=== PATIENT | male | born 1970 | race Caucasian/White ===

== ENCOUNTER 2024-02-03 11:49 | Inpatient (IN) | payer MEDICARE, MEDICAID, SELFPAY ==
[2024-02-03] VITALS (18 sets, daily range): BP systolic 129–178; BP diastolic 66–96; PULSE 80–107; RESP 15–18; TEMP 36.6–37.9; O2SAT 94–100; BMI 45.9
--- NOTE | 2024-02-03 12:02 | XR_ITS ---
WS: [id number] Examination: XR foot RT min 3V* [id number] Reason for Exam: foot infection Date: 02/03/2024 Comparison: None. Findings: There is marked soft tissue swelling of the ankle and foot Soft tissue air is identified both dorsally and along the plantar aspect of the foot There is destruction and osteomyelitis involving the right fourth proximal phalanx. Destructive hidalgo es/postoperative changes of the right first distal phalanx are identified. XR/XR foot RT min 3V* [id number] Impression: Marked soft tissue swelling is identified with soft tissue gas consistent with infection by a gas-forming organism. There is osteomyelitis involving the right fourth proximal phalanx. I discussed these findings with Dr. Fulton in the emergency room at 12:37 p.m. . He had already obtained a surgical consultation.
--- NOTE | 2024-02-03 12:02 | XR_ITS ---
WS: [id number] Examination: XR foot LT min 3V* [id number] Reason for Exam: foot infection Date: 02/03/2024 Comparison: None. Findings: There is soft tissue swelling of the foot particularly the great toe. A soft tissue wound/ulcer and wound of the great toe is suspected. There is deformity of the left first distal phalanx. On the lateral image apparent destructive change s are noted. I have no previous studies available for comparison. Findings are suggestive of osteomye litis. Radiopaque debris is identified along the plantar aspect of the great toe. There is no fracture or dislocation. XR/XR foot LT min 3V* [id number] Impression: There is soft tissue swelling. Findings suggest bony destruction/osteomyelitis of the distal phalanx of the left first toe. If old films are available comparison this would be of benefit..
--- NOTE | 2024-02-03 12:11 | ED_ITS ---
HPI - Wound/Laceration 2 General: Chief Complaint: Wound/Laceration Stated Complaint: rt foot infection, sepsis Time Seen by Provider: 02/03/24 11:56 History of Present Illness: 53-year-old man with a history of diabet es who currently takes no medications and sees no doctors who presents emergency room with worsening foot pain. He has what appears to be old wounds on his feet that are full of dirt and hair. He also has a lesion on his right foot in the arch area that is blistering and has surrounding erythema. This been going on for some time. He cannot really tell me why today was different than any other day when came in. He does have a bit of a fever on presentation. No altered mental status. No focal motor deficits. He does have an odd affect. No chest pain. No shortness of breath. No abdominal pain. No nausea or vomiting. Related Data Allergies Allergy/AdvReac Type Severity Reaction Status Date / Time No Known Allergies Allergy Verified 02/03/24 12:00 Review of Systems 2 Narrative: Constitutional symptoms: Negative except as documented in HPI. Skin symptoms: Negative except as documented in HPI. Eye symptoms: Negative except as documented in HPI. ENMT symptoms: Negative except as documented in HPI. Respiratory symptoms: Negative except as documented in HPI. Cardiovascular symptoms: Negative except as documented in HPI. Gastrointestinal symptoms: Negative except as documented in HPI. Genitourinary symptoms: Negative except as documented in HPI. Musculoskeletal symptoms: Negative except as documented in HPI. Neurologic symptoms: Negative except as documented in HPI. Psychiatric symptoms: Negative except as documented in HPI. Endocrine symptoms: Negative except as documented in HPI. Physical Exam 2 Narrative: EXAM NARRATIVE: General: Alert, no acute distress. Skin: Warm, dry. Head: Normocephalic, atraumatic. Neck: Supple, trachea midline. Eye: Extraocular movements are intact. Ears, nose, mouth and throat: mucosa moist. Cardiovascular: Regular, Normal peripheral perfusion. Respiratory: Lungs are clear to auscultation, respirations are non-labored, breath sounds are equal, Symmetrical chest wall expansion. Gastrointestinal: Soft, Nontender, Non distended Musculoskeletal: Normal ROM, no deformity. Neurological: Alert and oriented, No focal neurological deficit observed. Psychiatric: Cooperative, appropriate mood & affect. Course 2 Vital Signs: Vital signs: Vital Signs Temperature 98.1 F 02/03/24 14:28 Pulse Rate 104 H 02/03/24 14:28 Respiratory Rate 18 02/03/24 14:28 Blood Pressure 174/88 02/03/24 14:28 Pulse Oximetry 100 02/03/24 14:28 Oxygen Delivery Me thod Room Air 02/03/24 14:28 MDM - Wound/Laceration Medical Decision Making Medical decision making: Differential diagnosis including but not limited to and based on the above HPI, review of systems and physical exam: Patient has obvious foot infection. Concern for osteomyelitis and sepsis. Lab work and cultures etc. were ordered. Orders placed to evaluate differential diagnosis based on the above differential, HPI and physical exam Lab Review: Laboratory results were reviewed and interpreted by myself the emergency room physician. Significant leukocytosis. White count is 20,000. Significant anemia. Hemoglobin 7.8. Type and screen and coags were ordered. BUN and creatinine are elevated at 39 and 2.1. I do not have any baseline. Some acidosis with a CO2 of 16. X-ray of the right foot: Marked soft tissue swelling and soft tissue gas consistent with infection by gas-forming organism. There is osteomyelitis involving the right fourth proximal phalanx. X-ray of the left foot: There is soft tissue swelling. Findings suggest bony destruction/osteomyelitis of the distal phalanx of the left first toe. I reviewed the patient's medical record. Reexamination: Patient has remained stable. No worsening of the infection site. No altered mental status. No focal motor deficits. Consultation: Initially I consulted Dr. Bryan. He is evaluated the patient and looked at films. He feels the right foot is unsalvageable and recommends general surgery consultation for right BKA. He will continue to follow as far as the left foot is concerned. Consultation: I consulted Dr. French with general surgery. He is taking the patient to the OR for a right BKA as it appears he has gangrenous foot infection with osteomyelitis and copious air in his foot. Consultation: I spoke with Dr. Schwartz with the hospitalist service. He agrees to admission of the patient. Assessment and plan: Gangrenous foot infection Diabetic foot ulcers Medical noncompliance Poorly controlled diabetes Fever Possible sepsis - unknown heart status and patient does have high blood pressure and mild tachycardia so possible sepsis was given broad-spectrum antibiotics and a single liter of fluid. He can be reevaluated for further fluid administration. I do not know his heart status. -Broad-spectrum antibiotics were administered. Zyvox and meropenem -Sepsis quality measures. -Lactic acid with a reflex was ordered. -Blood cultures were ordered. -I discussed the patient with the hospitalist on-call who is admitting the patient. - Discussed findings and plan with patient. Answered any questions. - All laboratory values were reviewed and interpreted personally by myself, the ER physician - All imaging was reviewed and interpreted personally by myself, the ER physician. - Evaluation and treatment of this problem were appropriate in the emergency setting Critical care -I spent a total of >35 minutes of critical care time managing the patient, independent of any other practitioner. -The time involved in the performance of separately reportable procedures was not counted towards critical care time. Lab Data 02/03/24 13:15 02/03/24 13:15 Radiology Impressions Foot X-Ray 02/03/24 12:02 Impression: Marked soft tissue swelling is identified with soft tissue gas consistent with infection by a gas-forming organism. There is osteomyelitis involving the right fourth proximal phalanx. I discussed these findings with Dr. Fulton in the emergency room at 12:37 p.m. 02/03/2024. He had already obtained a surgical consultation. Laboratory Results WBC 20.09 10^3/uL (3.29-11.43) H 02/03/24 13:15 RBC 3.12 10^6/uL (3.85-5.65) L 02/03/24 13:15 Hgb 7.80 g/dL (11.27-16.99) L 02/03/24 13:15 Hct 27.0 % (37-53) L 02/03/24 13:15 MCV 86.5 fl (82-101) 02/03/24 13:15 MCH 25.0 pg (27-33) L 02/03/24 13:15 MCHC 28.9 g/dL (30-55) L 02/03/24 13:15 RDW 15.2 % (12.1-15.1) H 02/03/24 13:15 Plt Count 519 10^3/cmm (157-399) H 02/03/24 13:15 MPV 9.8 fL (7.4-10.4) 02/03/24 13:15 Neut % (Auto) 86.2 % 02/03/24 13:15 Lymph % (Auto) 4.8 % 02/03/24 13:15 Sequoyah % (Auto) 7.6 % 02/03/24 13:15 Eos % (Auto) 0.1 % 02/03/24 13:15 Baso % (Auto) 0.3 % 02/03/24 13:15 Neut # (Auto) 17.29 10^3/uL (1.8-7.7) H 02/03/24 13:15 Lymph # (Auto) 1.0 10^3/uL (0.8-4.8) 02/03/24 13:15 Sequoyah # (Auto) 1.5 10^3/uL (0.2-0.9) H 02/03/24 13:15 Eos # (Auto) 0.0 10^3/uL (0.0-0.8) 02/03/24 13:15 Baso # (Auto) 0.1 10^3/uL (0.0-0.1) 02/03/24 13:15 Nucleated RBC % (auto) 0 % 02/03/24 13:15 Nucleated RBCs # 0.0 /100WBC 02/03/24 13:15 ESR 99 mm/hr (0-10) H 02/03/24 13:15 PT 16.50 SECONDS (12.1-14.9) H 02/03/24 13:15 INR 1.29 (0.8-1.2) H 02/03/24 13:15 APTT 31.1 SECONDS (23.9-36.7) 02/03/24 13:15 Sodium 130 mmol/L (136-145) L 02/03/24 13:15 Potassium 3.7 mmol/L (3.5-5.1) 02/03/24 13:15 Chloride 96 mmol/L (98-107) L 02/03/24 13:15 Carbon Dioxide 16 mmol/L (22-29) L 02/03/24 13:15 Anion Gap 21.7 (5-19) H 02/03/24 13:15 BUN 39 mg/dL (6-20) H 02/03/24 13:15 Creatinine 2.1 mg/dL (0.7-1.2) H 02/03/24 13:15 GFR Calculation 33.3 mL/min (90-130) L 02/03/24 13:15 Glucose 170 mg/dL (65-115) H 02/03/24 13:15 Calculated Osmolality 283 mOsm/kg (285-295) L 02/03/24 13:15 Lactic Acid 1.2 mmol/L (0.5-2.2) 02/03/24 13:15 Calcium 7.8 mg/dL (8.5-10.5) L 02/03/24 13:15 Phosphorus 3.2 mg/dL (2.5-4.5) 02/03/24 13:15 Total Bilirubin 0.2 mg/dL (0.15-1.2) 02/03/24 13:15 AST 13 U/L (0-40) 02/03/24 13:15 ALT 11 U/L (0-41) 02/03/24 13:15 Alkaline Phosphatase 273 U/L (40-130) H 02/03/24 13:15 C-Reactive Protein 374.3 mg/L (0.0-4.9) H 02/03/24 13:15 Total Protein 8.0 g/dL (6.6-8.7) 02/03/24 13:15 Albumin 1.9 g/dL (3.5-5.2) L 02/03/24 13:15 Globulin 6.1 g/dL (1.3-4.6) H 02/03/24 13:15 Blood Type A Positive 02/03/24 14:02 Rho(D) Type Rh positive 02/03/24 14:02 All radiology interpretation(s) finalized by discharge Discharge Plan Discharge Patient Disposition: Admitted As Inpatient Clinical Impression: Gangrene of right foot, Medical non-compliance, Renal failure, Anemia, Sepsis Condition: Stable Coding Level of Care Code ED Neurodiagnostic Technician for Radha Doran
[2024-02-03 13:23] LABS: Basophils # 0.1 10^3/uL (0.0-0.1); Basophils % 0.3 %; Eosinophils % 0.1 %; Lymphocytes % 4.8 %; Mean Corpuscular HGB Conc 28.9 g/dL (30-55); Mean Corpuscular Volume 86.5 fl (82-101); Mean Platelet Volume 9.8 fL (7.4-10.4); Monocytes # 1.5 10^3/uL (0.2-0.9); Monocytes % 7.6 %; Neutrophils # 17.29 10^3/uL (1.8-7.7); Neutrophils % 86.2 %; Nucleated Red Blood Cells % 0 %; Platelet Count 519 10^3/cmm (157-399); Red Blood Count 3.12 10^6/uL (3.85-5.65); Red Cell Distribution Width 15.2 % (12.1-15.1); White Blood Count 20.09 10^3/uL (3.29-11.43)
--- NOTE | 2024-02-03 13:33 | P.ANESASSM_ITS ---
Pre-Anesthetic Assessment Height/Weight: Height 5 ft 10 in Weight 320 lb Temp Pulse Resp BP Pulse Ox O2 Del Method 100.3 F H 107 H 16 169/82 99 Room Air 02/03/24 11:57 02/03/24 12:00 02/03/24 12:00 02/03/24 12:00 02/03/24 12:00 02/03/24 12:00 Operation Date: 02/03/24 15:00 Proposed Procedures p Jeannette WOODSONA (Below Knee Amputation)(Right) - Laureano French, DO Social No tobacco Occasional alcohol use Exam alert, oriented x 3, clear to auscultation bilaterally and regular rate & rhythm Airway Submandibular: within normal limits Cervical ROM: within normal limits Mallampati: Class IV Dentition: other (Poor dentition, small mouth opening) Anesthetic Plan Other: Patient presents septic with gangrenous foot No prior anesthetic history N.p.o. since Labs reviewed WBC 20.9 Hemoglobin 7.8 Platelet count 519 Very poor hygiene, large. Plan for GETA Medications/Allergies Allergies Allergy/AdvReac Type Severity Reaction Status Date / Time No Known Allergies Allergy Verified 02/03/24 12:00 Data Anesthesia 02/03/24 13:15 02/03/24 13:15 Short CBC 02/03/24 Range/Units 13:15 WBC 20.09 H (3.29-11.43) 10^3/uL Hgb 7.80 L (11.27-16.99) g/dL Hct 27.0 L (37-53) % MCV 86.5 (82-101) fl Plt Count 519 H (157-399) 10^3/cmm Neut % (Auto) 86.2 % Neut # (Auto) 17.29 H (1.8-7.7) 10^3/uL Cardiac Studies: 2 No Data to Display
--- NOTE | 2024-02-03 13:35 | P.CONIM_ITS ---
Providers/Reason For Consult 2 Consulting Physician/Specialty*: Dr. Laureano French, DO/General Surgery Reason for Consult*: Right foot gas gangrene History of Present Illness History of Present Illness Saul Alexandra is a 53 year old male who presented to the hospital due to a worsening infection in his right foot. He also has wounds on his left foot. Podiatry saw the patient and believed he needs a right below-knee amputation. An x-ray of the right foot shows subcutaneous gas. He denies any significant pain in his right foot but there is significant edema to the right lower extremity especially compared to the left. He denies any fever or chills Review of Systems 2 General: Reports: 10 or more systems reviewed and unremarkable except in HPI and below Medications/Allergies Allergies Allergy/AdvReac Type Severity Reaction Status Date / Time No Known Allergies Allergy Verified 02/03/24 12:00 Vitals/I&O/Wt Last Vital Signs Temp 100.3 F H 02/03/24 11:57 Pulse 107 H 02/03/24 12:00 Resp 16 02/03/24 12:00 BP 169/82 02/03/24 12:00 Pulse Ox 99 02/03/24 12:00 O2 Del Method Room Air 02/03/24 12:00 Weight last 48 hrs Weight 320 lb Physical Exam 2 Narrative: General : Patient is well developed , no acute distress, oriented x3 Head : Normal cephalic, a-traumatic. Ears : Pinnae and external canal are normal. Hearing is normal. Eyes : PERRLA, Sclera and injection are normal. No conjunctival discharge. Nose : Mucous membranes are without erythema. Throat : buccal mucosa is normal, gums are without significant recession or hypertrophy. Lungs : Equal chest rise bilaterally, no use of accessory muscles, trachea is midline. Cor : Rate and rhythm are normal. Abdomen : Soft, ND, NT, no g/r/m Extremities : Extensive infection to the right foot with crepitus. There is pitting edema of the right lower extremity up to the knee and no pitting edema of the left lower extremity. Back : non-tender to palpation, no CVA tenderness. Neuro : CN II - XII intact, Upper and lower extremities have equal and full strength Data 02/03/24 13:15 02/03/24 13:15 A&P Assessment and plan (1) Gangrene of right foot: Plan Antibiotics Admit to medicine Podiatry following left foot wounds To OR for right guillotine below-knee amputation The risks and benefits of the procedure, including but not limited to, bleeding, infection, scar, numbness, pain, phantom limb syndrome, the fact that a completion below-knee amputation will need to be done in the near future, were explained to the patient. He is understanding of the risks and wishes to proceed. He will require a completion right below-knee amputation once the infection and edema have left the right lower extremity. I suspect this will be approximately Tuesday next week Coding Level of Care Code 06728 Diagnoses Gangrene of right foot I96
[2024-02-03 13:38] LABS: Erythrocyte Sedimentation Rate 99 mm/hr (0-10)
[2024-02-03 13:39] LABS: Lactic Sepsis W/Reflex 1.2 mmol/L (0.5-2.2)
[2024-02-03 13:40] LABS: Alanine Aminotransferase 11 U/L (0-41); Albumin Level 1.9 g/dL (3.5-5.2); Alkaline Phosphatase 273 U/L (40-130); Anion Gap 21.7 (5-19); Aspartate Amino Transferase 13 U/L (0-40); Blood Urea Nitrogen 39 mg/dL (6-20); Calcium 7.8 mg/dL (8.5-10.5); Carbon Dioxide 16 mmol/L (22-29); Chloride 96 mmol/L (98-107); Creatinine Clr Calc Pharmacy 59.2836; Globulin 6.1 g/dL (1.3-4.6); Glomerular Filtration Rate 33.3 mL/min (90-130); Glucose 170 mg/dL (65-115); Osmolality Calculated 283 mOsm/kg (285-295); Phosphorus 3.2 mg/dL (2.5-4.5); Potassium 3.7 mmol/L (3.5-5.1); Sodium 130 mmol/L (136-145); Total Bilirubin 0.2 mg/dL (0.15-1.2)
[2024-02-03 13:46] LABS: INR 1.29 (0.8-1.2)
[2024-02-03 13:47] LABS: Partial Thromboplastin Time 31.1 SECONDS (23.9-36.7)
[2024-02-03 13:55] LABS: C Reactive Protein 374.3 mg/L (0.0-4.9)
--- NOTE | 2024-02-03 14:03 | P.CONIM_ITS ---
Providers/Reason For Consult 2 Consulting Physician/Specialty*: Liv De LunaPRanjeetMRanjeet/podiatry Reason for Consult*: Bilateral wounds, right foot gas gangrene History of Present Illness History of Present Illness Saul Alexandra is a 53 year old male with history of uncontrolled type 2 diabetes currently taking no medication. Who presented to the emergency department with complaint of worsening right foot pain. Patient is unkempt and states that he does not have a primary care provider and it has been a long time since he has seen any doctor. Patient states that he has not been able to eat or drink over the past 3 days. He has had increasing pain to the right lower extremity and endorses constitutional symptoms including fever. Review of Systems 2 General: Reports: 10 or more systems reviewed and unremarkable except in HPI and below Const: Denies: fever(s), chills, body aches or change in appetite Eyes: Denies: change in vision or blurry vision Card: Denies: chest pain, palpitations or irregular heart rhythm Resp: Denies: dyspnea GI: Denies: abdominal pain, nausea, vomiting or diarrhea Musc: Reports: joint stiffness Skin/Breast: Reports: non-healing lesions and lesions Neuro: Reports: numbness in extremities Medications/Allergies Allergies Allergy/AdvReac Type Severity Reaction Status Date / Time No Known Allergies Allergy Verified 02/03/24 12:00 Vitals/I&O/Wt Last Vital Signs Temp 100.3 F H 02/03/24 11:57 Pulse 103 H 02/03/24 13:53 Resp 16 02/03/24 13:53 BP 178/96 02/03/24 13:53 Pulse Ox 100 02/03/24 13:53 O2 Del Method Room Air 02/03/24 13:53 Weight last 48 hrs Weight 320 lb Physical Exam 2 Narrative: BELOW IS A FOCUSED LOWER EXTREMITY EXAM GENERAL: A&O x 3 VASCULAR: DP/PT pulses diminished DERMATOLOGICAL: Full-thickness ulceration to plantar hallux interphalangeal joint bilaterally. Visible dirt, pet hair and bilateral wounds. Right foot has significant erythema circumferentially around the forefoot midfoot with palpable crepitus circumferentially around the midfoot tracking up into the shalom pedis of the right foot. Large abscess formation to plantar medial arch with crepitus. MUSCULOSKELETAL: Deferred NEUROLOGICAL: Neurological sensation to the affected foot and ankle is present through L4-S1 dermatomes with no hyper/hypoesthesias, negative Tinel or Valleix's sign IMAGING: Three-view x-rays of bilateral feet taken in the emergency department were personally turbid by me. Right foot shows extensive soft tissue swelling with subcutaneous emphysema diffusely throughout the midfoot and forefoot. Gas appears to be tracking proximally to the level of the talonavicular joint. Ablation of distal phalanx of right hallux consistent with osteomyelitis as well as pathological fractures of fourth and fifth proximal phalanges surrounded by gas. Gas is tracking laterally to the level of the cuboid. Left foot shows increase soft tissue density. Erosive changes of distal phalanx of left hallux consistent with osteomyelitis with foreign bodies present. No subcutaneous emphysema noted on left foot x-rays. Data 02/03/24 13:15 02/03/24 13:15 A&P Assessment and plan (1) Gangrene of right foot: (2) Gas gangrene: (3) Left hallux osteomyelitis: Plan -Right foot gas gangrene, left foot hallux osteomyelitis -Labs and vitals reviewed -WBC 20.09 -ESR 99 -CRP 374 -HR 103 -RR 16 -Tmax 100.3 -Cultures blood cultures pending -Abx meropenem/linezolid -Diet: N.p.o. -Patient's condition warrants consideration for a more proximal level of amputation, specifically a below-knee or above-knee amputation. 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 Saul demonstrated comprehension of the situation and the need for further surgical intervention.? Patient expressed agreement to proceed with the higher level of amputation as recommended.? Patient understands the need for another surgical consultation with the appropriate expertise for further evaluation and has agreed to the referral process. -Patient is scheduled for guillotine amputation of right lower extremity with general surgery today 02/03/2024 -Patient will need further treatment for left hallux wound and underlying osteomyelitis. This will include debridement and possible amputation. I discussed this with the patient at bedside in the emergency department. I will continue to round on patient to provide recommendations and discuss the timing of this -Pain Mgmt: Per primary team -Weight bearing: Nonweightbearing -Dressings: Betadine wet-to-dry to left hallux wound change daily -Continue current Abx therapy until ID and Sensitivity results -Trend labs -Discharge plan: To be determined -Podiatry will continue to round on patient daily and provide recommendations Coding Level of Care Code Acute Code for Chg Fwd Diagnoses Gangrene of right foot I96 Gas gangrene A48.0 Left hallux osteomyelitis M86.9
[2024-02-03] MEDS: sodium chloride 0.9% 1,000 ML 999 ML IV (14:30)
[2024-02-03 15:17] LABS: Estmated Average Glucose 240
--- NOTE | 2024-02-03 15:55 | P.HP_ITS ---
Providers/Chief Complaint 2 Admitting Physician: Raphael Schwartz MD, hospitalist Chief Complaint: rt foot infection, sepsis History of Present Illness Saul Alexandra is a 53 year old diabetic male presenting to the nursing facility with concerns of an infected foot. He has not seen a doctor in quite some time. He has been having bilateral foot odor, drainage, sores, and now discomfort. I am now seeing him directly postoperative, and he is still under the effects of anesthesia. He can tell me he has had some sores for quite a while, but difficult in delineating much else. Medications/Allergies Allergies Allergy/AdvReac Type Severity Reaction Status Date / Time No Known Allergies Allergy Verified 02/03/24 12:00 PFSH Acute 2 PFSH: Medical History (Updated 02/03/24 @ 15:57 by Raphael Schwartz MD) Diabetes mellitus Surgical History (Updated 02/03/24 @ 16:55 by Raphael Schwartz MD) History of facial surgery Social History (Updated 02/03/24 @ 16:55 by Raphael Schwartz MD) Smoking and tobacco/nicotine status: never used tobacco/nicotine Alcohol intake: never Vitals/I&O/Wt Last Vital Signs Temp 98.1 F 02/03/24 14:28 Pulse 104 H 02/03/24 14:28 Resp 18 02/03/24 14:28 BP 174/88 02/03/24 14:28 Pulse Ox 100 02/03/24 14:28 O2 Del Method Room Air 02/03/24 14:28 Weight last 48 hrs Weight 145.15 kg Physical Exam 2 Narrative: General exam is a white male, recovering from anesthesia who appears sleepy. He is able to give limited history. HEENT: Atraumatic normocephalic. Scarring is noted around his left eye in the facial area. Neck is supple no lymphadenopathy thyromegaly Cardiovascular regular rate and rhythm without murmur Lungs clear Abdomen is soft nontender Right lower extremity with amputation. Left lower extremity with bandage/dressing Skin no rash Neuro no obvious focal deficits Data 02/03/24 13:15 02/03/24 13:15 Other Labs: ESR 99 LFTs normal with the exception of alk phos Calcium 7.8, albumin 1.9 Alk phos 273 CRP markedly elevated And A1c 10 Gas was noted on right foot x-ray consistent with gas gangrene. I reviewed this as well Left lower extremity with osteomyelitis left great toe. I reviewed this as well. It appears like a blood culture was ordered, but I do not think it was obtained prior to getting antibiotics. A&P Assessment and plan (1) Gangrene of right foot: Patient presents with gas gangrene of the right foot Pain control Surgical consult. He is currently receiving an amputation of his right lower extremity He will likely have a staged closure next week IV antibiotics consisting of vancomycin, Zosyn He likely qualified for sepsis diagnosis on arrival to the emergency department as it is documented in the emergency department physician note. He is certainly stabilized now. Unfortunately I do not believe blood cultures were obtained. Qualification of sepsis would have been elevated white count, source of infection, acute kidney injury, fever (2) Left hallux osteomyelitis: IV antibiotics consisting of vancomycin and Zosyn Podiatry consultation (3) Anemia: Patient with significant anemia Anemia panel, stool Hemoccult Protonix 40 mg daily CBC tomorrow (4) Acute kidney injury: Hydration Check urinalysis With low albumin we will go ahead and check a spot urine protein and creatinine. He may have nephrotic syndrome Renal ultrasound BMP daily Avoid anti-inflammatories (5) Hyponatremia: Likely secondary to renal failure Check TSH, cortisol Hydration, recheck tomorrow (6) Elevated blood pressure reading: He likely has hypertension, but blood pressure could be elevated secondary to pain Continue to monitor and start antihypertensives as warranted Plan Full code Heparin for DVT prophylaxis Attestations 2 Medical Necessity Statement*: Will need greater than 2 midnight stay for evaluation and treatment of gas gangrene requiring surgery, osteomyelitis requiring IV antibiotics Diagnoses Gangrene of right foot I96 Left hallux osteomyelitis M86.9 Anemia D64.9 Acute kidney injury N17.9 Hyponatremia E87.1 Elevated blood pressure reading R03.0 Time Spent (min) 67
[2024-02-03] MEDS: meropenem 500 mg SDV IVP (16:00)
--- NOTE | 2024-02-03 16:11 | PHA.VACGOAL ---
Vancomycin Goal - Goal Vancomycin Goal:: 15-20 mg/L Vancomycin Indication:: Other (GANGRENE) - Therapy Current therapy:: Pip/Tazo Day of therpy:: Day [1]of [] Actual body weight (kg): 320 lb [place] body weight: 73 kg Dosing weight (kg): 101.8 kg - Data Labs: WBC 20.09 10^3/uL (3.29-11.43) H 02/03/24 13:15 RBC 3.12 10^6/uL (3.85-5.65) L 02/03/24 13:15 Hgb 7.80 g/dL (11.27-16.99) L 02/03/24 13:15 Hct 27.0 % (37-53) L 02/03/24 13:15 MCV 86.5 fl (82-101) 02/03/24 13:15 MCH 25.0 pg (27-33) L 02/03/24 13:15 MCHC 28.9 g/dL (30-55) L 02/03/24 13:15 RDW 15.2 % (12.1-15.1) H 02/03/24 13:15 Sodium 130 mmol/L (136-145) L 02/03/24 13:15 Potassium 3.7 mmol/L (3.5-5.1) 02/03/24 13:15 Chloride 96 mmol/L (98-107) L 02/03/24 13:15 Carbon Dioxide 16 mmol/L (22-29) L 02/03/24 13:15 Anion Gap 21.7 (5-19) H 02/03/24 13:15 BUN 39 mg/dL (6-20) H 02/03/24 13:15 Creatinine 2.1 mg/dL (0.7-1.2) H 02/03/24 13:15 GFR Calculation 33.3 mL/min (90-130) L 02/03/24 13:15 Last dialysis session:: N/A Treatment plan:: new consult Regimen:: INITIAL BOLUS DOSE OF 2000 MG MAINTENANCE DOSE 1500 MG Q18H TO START TOMORROW Follow up:: WILL MONITOR RENAL FUNCTION AND CONTINUE TO FOLLOW UP DAILY
--- NOTE | 2024-02-03 16:21 | SUR.OPER ---
[address] WOOD AT THE UPPER THIGH WITH WEBRIL PLACED UNDERNEATH FOR PADDING. INFLATED TO 250MM/HG AT 1609, DEFLATED AT 1611. SKIN PINK AND DRY AFTER REMOVAL
--- NOTE | 2024-02-03 16:23 | PM.OP ---
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 Guillotine right below-knee amputation was indicated in order to help progression of the gangrene and allow for drainage of edema and infection. Plans are for completion right below-knee amputation in the near future. The risks and benefits of the procedure were explained and documented. Procedure: Patient was wheeled operative room placed on the OR table in supine position general endotracheal ovation was achieved as part of anesthesia. The right lower extremity was inspected prepped and draped in usual sterile fashion. A timeout was performed. All present were in agreement. A tourniquet around the right thigh was inflated to 250 mmHg. A 10 blade scalpel was used to make a circumferential incision down through the skin and subcutaneous tissue at the most distal right tibia and fibula. Scope was then used to cut through the musculature. A tubular cell was then used to transect the distal fibula and tibia. Specimen was passed off. Large vessels were tied off with 0 silk suture. The tourniquet was then let down. Total tourniquet time was 2 minutes. Further spot bleeding was controlled with electrocautery. The guillotine stump was then bandaged with fluffs, 4 x 4's, ABDs, Kerlix, blue towel and Coban. Patient tolerated procedure well.
[2024-02-03] MEDS: linezolid premix 600 MG/300 ML PREMIX 300 MG IV (16:40)
[2024-02-03 17:39] LABS: Glucose Point of Care 229 mg/dL (70-110)
[2024-02-03] MEDS: vancomycin 2,000 MG/400 ML PIGGYBACK 200 MG IV (17:54)
[2024-02-03] MEDS: sodium chloride 0.9% 1,000 ML 100 ML IV (17:55)
[2024-02-03] MEDS: heparin 5,000 unit/mL INJ 1 mL 5000 UNIT SUBCUT (17:55)
[2024-02-03] MEDS: insulin lispro 100 unit/1 mL SUBCUT ×2 (18:46→21:10)
[2024-02-03] MEDS: oxyCODONE-APAP 10-325 mg Tablet 1 TAB PO (21:10)
[2024-02-03 21:11] LABS: Glucose Point of Care 272 mg/dL (70-110)
[2024-02-04] VITALS (8 sets, daily range): BP systolic 121–172; BP diastolic 69–91; PULSE 73–85; RESP 16–19; TEMP 36.3–36.6; O2SAT 91–100
[2024-02-04] MEDS: piperacillin-tazobactam 3.375 GM in sodium chloride 0.9% (plus) 50 ML IV ×4 (00:28→23:46)
[2024-02-04] MEDS: sodium chloride 0.9% 1,000 ML 100 ML IV ×3 (03:12→23:47)
[2024-02-04 03:20] LABS: Bacteria Urine None Seen /hpf
[2024-02-04 03:23] LABS: Bilirubin Urine Negative (Negative); Blood Urine 2+ (Negative); Glucose Urine UA 1+ (Normal); Ketones Urine Negative (Negative); Leukocyte Esterase Urine Negative (Negative); Nitrate Urine Negative (Negative); Protein Urine 3+ (Negative); Specific Gravity, Urine 1.017 (1.005-1.030); Urine Appearance Cloudy (CLEAR); Urine Color Yellow (Yellow)
[2024-02-04 03:35] LABS: Urine Creatinine 82 mg/dL (39-259)
[2024-02-04] MEDS: oxyCODONE-APAP 10-325 mg Tablet 1 TAB PO ×2 (03:42→13:34)
[2024-02-04 03:52] LABS: Urine Protein Random 252 mg/dL
[2024-02-04 05:38] LABS: Basophils % 0.2 %; Hematocrit 25.8 % (37-53); Lymphocytes # 0.8 10^3/uL (0.8-4.8); Lymphocytes % 4.9 %; Mean Corpuscular HGB Conc 29.8 g/dL (30-55); Mean Corpuscular Hemoglobin 25.2 pg (27-33); Mean Corpuscular Volume 84.6 fl (82-101); Mean Platelet Volume 9.8 fL (7.4-10.4); Monocytes # 0.7 10^3/uL (0.2-0.9); Monocytes % 4.5 %; Neutrophils # 14.47 10^3/uL (1.8-7.7); Neutrophils % 88.9 %; Nucleated Red Blood Cells % 0 %; Platelet Count 516 10^3/cmm (157-399); Red Blood Count 3.05 10^6/uL (3.85-5.65); Red Cell Distribution Width 14.9 % (12.1-15.1); White Blood Count 16.27 10^3/uL (3.29-11.43)
[2024-02-04 06:00] LABS: Alanine Aminotransferase 9 U/L (0-41); Alkaline Phosphatase 282 U/L (40-130); Anion Gap 20.3 (5-19); Aspartate Amino Transferase 11 U/L (0-40); Blood Urea Nitrogen 44 mg/dL (6-20); Calcium 7.4 mg/dL (8.5-10.5); Carbon Dioxide 16 mmol/L (22-29); Chloride 97 mmol/L (98-107); Creatinine Clr Calc Pharmacy 55.3657; Globulin 5.9 g/dL (1.3-4.6); Glomerular Filtration Rate 33.3 mL/min (90-130); Glucose 243 mg/dL (65-115); Magnesium 2.4 mg/dL (1.7-2.3); Osmolality Calculated 287 mOsm/kg (285-295); Potassium 4.3 mmol/L (3.5-5.1); Sodium 129 mmol/L (136-145); Total Bilirubin 0.2 mg/dL (0.15-1.2); Total Protein 7.9 g/dL (6.6-8.7)
[2024-02-04 06:28] LABS: Glucose Point of Care 249 mg/dL (70-110)
[2024-02-04] MEDS: heparin 5,000 unit/mL INJ 1 mL 5000 UNIT SUBCUT ×2 (06:28→17:42)
[2024-02-04 06:45] LABS: Ferritin 243 ng/mL (30-400); Iron 14 ug/dL (59-158); Percent Saturation 10.7 % (20-50); Thyroid Stimulating Hormone 1.06 uIU/mL (0.27-4.20); Total Iron Binding Capacity 130 mcg/dl; Unsaturated Iron Binding 116 ug/dL (112-347); Vitamin B12 1773 pg/mL (232-1245)
[2024-02-04 06:48] LABS: Folate Level 7.1 ng/mL (4.5-32.2)
[2024-02-04 07:10] LABS: Cortisol Random 9.67 ug/dL (2.47-19.5)
--- NOTE | 2024-02-04 08:14 | P.PN_ITS ---
Subjective 2 Subjective: Patient seen at bedside this morning eating breakfast, status post right guillotine below the knee amputation for gas gangrene. Patient denies any overnight events. Hemoglobin 7.7. Pain is well-controlled. Vitals/I&O/Wt Last Vital Signs Temp 97.8 F 02/04/24 08:02 Pulse 80 02/04/24 08:02 Resp 17 02/04/24 08:02 BP 172/91 02/04/24 08:02 Pulse Ox 91 02/04/24 08:02 O2 Del Method Room Air 02/04/24 08:02 O2 Flow Rate 8 02/03/24 16:53 02/03/24 02/04/24 02/04/24 22:59 06:59 14:59 Intake Total 2180 / 2180 978.333 / 3158.333 Output Total 1500 / 1525 Balance 2155 / 2155 -521.667 / 1633.333 Weight last 48 hrs Weight 282 lb 14.4 oz Weight 320 lb Weight 320 lb Physical Exam 2 Narrative: BELOW IS A FOCUSED LOWER EXTREMITY EXAM GENERAL: A&O x 3 VASCULAR: DP/PT pulses diminished DERMATOLOGICAL: Full-thickness ulceration plantar aspect of left hallux interphalangeal joint with granular wound bed hyperkeratotic rim. Malodorous with positive probe to bone. No active drainage. Right lower extremity below the knee amputation dressing intact with no strikethrough noted. MUSCULOSKELETAL: Deferred NEUROLOGICAL: Neurological sensation to the affected foot and ankle is present through L4-S1 dermatomes with no hyper/hypoesthesias, negative Tinel or Valleix's sign IMAGING: Three-view x-rays of bilateral feet taken in the emergency department were personally turbid by me. Right foot shows extensive soft tissue swelling with subcutaneous emphysema diffusely throughout the midfoot and forefoot. Gas appears to be tracking proximally to the level of the talonavicular joint. Ablation of distal phalanx of right hallux consistent with osteomyelitis as well as pathological fractures of fourth and fifth proximal phalanges surrounded by gas. Gas is tracking laterally to the level of the cuboid. Left foot shows increase soft tissue density. Erosive changes of distal phalanx of left hallux consistent with osteomyelitis with foreign bodies present. No subcutaneous emphysema noted on left foot x-rays. Urinary Catheter Management: Mclain: Cath Placed During This Visit: yes Reason for Continuing Indwelling Catheter: Acute Urinary Retention or Obstruction Urinary Catheter Date of Insertion: 02/04/24 Urinary Catheter Time of Insertion: 04:18 Data 02/04/24 05:23 02/04/24 05:23 Micro: Microbiology 02/03/24 19:08 Blood Culture - Preliminary Blood SPECIMEN COLLECTED 02/03/24 19:07 Blood Culture - Preliminary Blood SPECIMEN COLLECTED A&P Assessment and plan (1) Gangrene of right foot: Status post guillotine below-knee amputation to right DOS 02/03/2024 (2) Gas gangrene: Status post amputation (3) Left hallux osteomyelitis: Plan -Right foot gas gangrene, left foot hallux osteomyelitis -Labs and vitals reviewed -WBC 20.09-->16.27 -ESR 99 -CRP 374 -HR 103 -RR 16 -Tmax 100.3-->97.8 -Cultures blood cultures pending -Abx Vanco/Zosyn -Diet: Okay for diet from podiatry standpoint -Patient is status post right guillotine below the knee amputation (02/03/2024) -Left hallux wound was cleaned at bedside this morning. Wound bed is granular. However, there is malodor with positive probe to bone and hyperkeratotic rim. X-rays show underlying osteomyelitis. Discussion was had with patient at bedside this morning regarding treatment options available to him which include PICC line and 6 weeks of IV antibiotics versus hallux amputation partial versus complete. My recommendation based on findings, patient noncompliance up to this point would be for left hallux amputation. X-rays were printed and reviewed with the patient at bedside in detail. If we proceeded with amputation it would be early next week. I will discuss this further with patient tomorrow. -Pain Mgmt: Per primary team -Weight bearing: Nonweightbearing -Dressings: Betadine wet-to-dry to left hallux wound change daily -Continue current Abx therapy until ID and Sensitivity results -Trend labs -Discharge plan: To be determined -Podiatry will continue to round on patient daily and provide recommendations Attestations 2 Medical Necessity Statement*: Status post guillotine below the knee amputation right lower extremity. Left hallux osteomyelitis Coding Level of Care Code Acute Code for [facility] Diagnoses Gangrene of right foot I96 Gas gangrene A48.0 Left hallux osteomyelitis M86.9
[2024-02-04] MEDS: insulin lispro 100 unit/1 mL SUBCUT ×4 (08:29→21:33)
[2024-02-04] MEDS: pantoprazole DR 40 mg Tablet PO (08:30)
[2024-02-04] MEDS: vancomycin 1,500 MG/300 ML PIGGYBACK 200 MG IV (11:17)
[2024-02-04 11:18] LABS: Glucose Point of Care 294 mg/dL (70-110)
--- NOTE | 2024-02-04 16:01 | USR_ITS ---
PROCEDURE INFORMATION: Exam: US Retroperitoneal, Complete, Kidneys and Bladder Exam date and time: 02/04/2024 7:41 AM Age: 53 years old Clinical indication: Condition or disease; Other: Renal failure; Additional info: Renal failure, being held npo after [address] 6:15 TECHNIQUE: Imaging protocol: Real-time ultrasound of the retroperitoneum with image documentation. Complete exam focused on the bilateral kidneys and urinary bladder. COMPARISON: No relevant prior studies available. FINDINGS: Right kidney: The right kidney measures up to 14.4 cm in length. Increased size of the right kidney. Normal contour and echotexture. No hydronephrosis. No masses. Left kidney: The left kidney measures up to 14.2 cm in length. Increased size of the left kidney. Normal contour and echotexture. No hydronephrosis. Left renal cyst measures up to 2 cm. Urinary bladder: Mclain catheter in the bladder. US/US renal BI* [id number] IMPRESSION: No hydronephrosis.
[2024-02-04 16:27] LABS: Glucose Point of Care 372 mg/dL (70-110)
--- NOTE | 2024-02-04 17:10 | P.PN_ITS ---
Subjective 2 Subjective: Patient seen and examined. Pain controlled Vitals/I&O/Wt Last Vital Signs Temp 97.6 F 02/04/24 16:11 Pulse 80 02/04/24 16:11 Resp 18 02/04/24 16:11 BP 146/82 02/04/24 16:11 Pulse Ox 97 02/04/24 16:11 O2 Del Method Room Air 02/04/24 16:11 O2 Flow Rate 8 02/03/24 16:53 02/04/24 02/04/24 02/04/24 06:59 14:59 22:59 Intake Total 978.333 / 3158.333 1959 Output Total 1500 / 1525 Balance -521.667 / 6163.064 1853 / 1960 Weight last 48 hrs Weight 282 lb 14.4 oz Weight 320 lb Weight 320 lb Physical Exam 2 Narrative: General: No acute distress, awake alert and oriented x 3 Extremities: Right lower extremity dressing intact and not saturated. Still pitting edema to right lower extremity Urinary Catheter Management: Mclain: Cath Placed During This Visit: yes Reason for Continuing Indwelling Catheter: Acute Urinary Retention or Obstruction Urinary Catheter Date of Insertion: 02/04/24 Urinary Catheter Time of Insertion: 04:18 Data 02/04/24 05:23 02/04/24 05:23 Micro: Microbiology 02/03/24 19:08 Blood Culture - Preliminary Blood SPECIMEN COLLECTED 02/03/24 19:07 Blood Culture - Preliminary Blood SPECIMEN COLLECTED A&P Assessment and plan (1) Gangrene of right foot: Plan Postop day #1 status post right guillotine below-knee amputation He will require a completion right below-knee amputation once the infection and edema have left the right lower extremity. I suspect this will be approximately Tuesday next week Medical management per primary Podiatry is managing the left foot Attestations 2 Medical Necessity Statement*: Per primary Coding Level of Care Code 55975 Diagnoses Gangrene of right foot I96
--- NOTE | 2024-02-04 17:25 | P.PN_ITS ---
Subjective 2 Subjective: Patient reports feeling better today. He denies any pain at this time. Says that he has been able to rest. Medications: Reviewed: Yes Vitals/I&O/Wt Last Vital Signs Temp 97.6 F 02/04/24 16:11 Pulse 80 02/04/24 16:11 Resp 18 02/04/24 16:11 BP 146/82 02/04/24 16:11 Pulse Ox 97 02/04/24 16:11 O2 Del Method Room Air 02/04/24 16:11 O2 Flow Rate 8 02/03/24 16:53 02/04/24 02/04/24 02/04/24 06:59 14:59 22:59 Intake Total 978.333 / 3158.333 1959 Output Total 1500 / 1525 Balance -521.667 / 9196.714 3391 / 1960 Weight last 48 hrs Weight 282 lb 14.4 oz Weight 320 lb Weight 320 lb Physical Exam 2 Narrative: General: No acute distress. HEENT: Atraumatic normocephalic. Neck: Supple, no thyromegaly. Heart: Regular rate and rhythm without murmur Lungs: Lungs clear to auscultation. Abdomen: soft, non-tender, non-distended. Extremities: Right lower extremity amputation. Left lower extremity with dressing in place. Skin: No rash or lesions on exposed areas. Neuro: No focal motor or sensory deficits. Urinary Catheter Management: Mclain: Cath Placed During This Visit: yes Reason for Continuing Indwelling Catheter: Acute Urinary Retention or Obstruction Urinary Catheter Date of Insertion: 02/04/24 Urinary Catheter Time of Insertion: 04:18 Data 02/04/24 05:23 02/04/24 05:23 Micro: Microbiology 02/03/24 19:08 Blood Culture - Preliminary Blood SPECIMEN COLLECTED 02/03/24 19:07 Blood Culture - Preliminary Blood SPECIMEN COLLECTED A&P Assessment and plan (1) Gangrene of right foot: Patient presents with gas gangrene of the right foot Pain control Surgical consult. He is currently receiving an amputation of his right lower extremity He will likely have a staged closure next week IV antibiotics consisting of vancomycin, Zosyn He likely qualified for sepsis diagnosis on arrival to the emergency department as it is documented in the emergency department physician note. He is certainly stabilized now. Unfortunately I do not believe blood cultures were obtained. Qualification of sepsis would have been elevated white count, source of infection, acute kidney injury, fever (2) Left hallux osteomyelitis: IV antibiotics consisting of vancomycin and Zosyn Podiatry consultation (3) Anemia: Patient with significant anemia Anemia panel, stool Hemoccult Protonix 40 mg daily CBC tomorrow (4) Acute kidney injury: Hydration Check urinalysis With low albumin we will go ahead and check a spot urine protein and creatinine. He may have nephrotic syndrome Renal ultrasound BMP daily Avoid anti-inflammatories (5) Hyponatremia: Likely secondary to renal failure Check TSH, cortisol Hydration, recheck tomorrow (6) Elevated blood pressure reading: He likely has hypertension, but blood pressure could be elevated secondary to pain Continue to monitor and start antihypertensives as warranted Plan PLAN FOR TODAY: Continue close inpatient monitoring. General surgery and podiatry are both consulted. Continue vancomycin and Zosyn for treatment of gas gangrene, sepsis. Blood cultures are currently negative to date. His blood pressure has been better controlled. Currently in the 130-140 systolic range. His sugars remain difficult to control. He is on sliding scale insulin and we will continue. A1c was 10.0. His albumin was low at 2.0. Plan to recheck labs in the morning. His creatinine is currently 2.1, which does appear to be at his baseline. His sodium was slightly low to 129. This is likely pseudohyponatremia in the face of elevated sugars. Sodium does correct to 133. White count is down to 16 from 20. Recheck a.m. labs. Code Status: Full IVF: NS at 100 DVT PPx: Heparin GI PPx: Protonix ABx: Vancomycin, Zosyn Diet: Carb consistent, renal diabetic nondialysis Discharge plan: To be determined Attestations 2 Medical Necessity Statement*: Will need greater than 2 midnight stay for evaluation and treatment of gas gangrene requiring surgery, osteomyelitis requiring IV antibiotics Coding Level of Care Code Acute Code for Chg Fwd Moderate MDM includes number and complexity of problems actively addressed during encounter, amount and/or complexity of data reviewed/ordered and described risk of complication, morbidity or mortality of management as documented Diagnoses Gangrene of right foot I96 Left hallux osteomyelitis M86.9 Anemia D64.9 Acute kidney injury N17.9 Hyponatremia E87.1 Elevated blood pressure reading R03.0
[2024-02-04 21:15] LABS: Glucose Point of Care 368 mg/dL (70-110)
[2024-02-05] VITALS (9 sets, daily range): BP systolic 130–161; BP diastolic 73–93; PULSE 72–86; RESP 15–19; TEMP 36.4–36.6; O2SAT 94–98
[2024-02-05] MEDS: vancomycin 1,500 MG/300 ML PIGGYBACK 200 MG IV (05:41)
[2024-02-05] MEDS: heparin 5,000 unit/mL INJ 1 mL 5000 UNIT SUBCUT ×2 (05:41→17:32)
[2024-02-05] MEDS: acetaminophen 325 mg Tablet 650 MG PO (05:51)
[2024-02-05 06:24] LABS: Glucose Point of Care 307 mg/dL (70-110)
[2024-02-05] MEDS: insulin lispro 100 unit/1 mL SUBCUT ×4 (07:34→21:16)
[2024-02-05] MEDS: piperacillin-tazobactam 3.375 GM in sodium chloride 0.9% (plus) 50 ML IV ×2 (07:34→17:32)
[2024-02-05] MEDS: pantoprazole DR 40 mg Tablet PO (07:34)
--- NOTE | 2024-02-05 11:03 | P.PN_ITS ---
Subjective 2 Subjective: Patient seen and examined. Pain well-controlled. Denies any nausea or vomiting Vitals/I&O/Wt Last Vital Signs Temp 97.7 F 02/06/24 07:47 Pulse 95 02/06/24 07:47 Resp 20 H 02/06/24 07:47 BP 163/93 02/06/24 07:47 Pulse Ox 99 02/06/24 07:47 O2 Del Method Room Air 02/06/24 07:47 O2 Flow Rate 8 02/03/24 16:53 02/05/24 02/06/24 02/06/24 22:59 06:59 14:59 Intake Total 1770 / 4080 650 / 4730 1000 / 1000 Output Total 750 / 1750 1275 / 3025 Balance 1020 / 2330 -625 / 1705 1000 / 1000 Weight last 48 hrs Weight 292 lb 14.4 oz Weight 288 lb 9.6 oz Physical Exam 2 Narrative: General: No acute distress, awake alert and oriented x 3 Extremities: Right lower extremity dressing intact and not saturated. Edema in right lower extremity almost resolved Urinary Catheter Management: Mclain: Cath Placed During This Visit: yes Reason for Continuing Indwelling Catheter: Acute Urinary Retention or Obstruction Urinary Catheter Date of Insertion: 02/04/24 Urinary Catheter Time of Insertion: 04:18 Data 02/06/24 05:30 02/06/24 04:22 A&P Assessment and plan (1) Gangrene of right foot: Plan Postop day #2 status post right guillotine below-knee amputation He will require a completion right below-knee amputation once the infection and edema have left the right lower extremity. Planning for surgery Tuesday Medical management per primary Podiatry is managing the left foot Attestations 2 Medical Necessity Statement*: Per primary Coding Level of Care Code 13691 Diagnoses Gangrene of right foot I96
[2024-02-05] MEDS: sodium chloride 0.9% 1,000 ML 100 ML IV ×2 (11:19→21:39)
[2024-02-05 11:22] LABS: Glucose Point of Care 322 mg/dL (70-110)
[2024-02-05 11:26] LABS: Basophils # 0.1 10^3/uL (0.0-0.1); Basophils % 0.4 %; Eosinophils # 0.1 10^3/uL (0.0-0.8); Eosinophils % 0.5 %; Hematocrit 28.4 % (37-53); Lymphocytes # 1.9 10^3/uL (0.8-4.8); Lymphocytes % 12.5 %; Mean Corpuscular HGB Conc 28.5 g/dL (30-55); Mean Corpuscular Hemoglobin 25.5 pg (27-33); Mean Corpuscular Volume 89.3 fl (82-101); Mean Platelet Volume 9.8 fL (7.4-10.4); Monocytes # 1.3 10^3/uL (0.2-0.9); Monocytes % 8.9 %; Neutrophils # 11.24 10^3/uL (1.8-7.7); Neutrophils % 74.9 %; Nucleated Red Blood Cells % 0 %; Platelet Count 594 10^3/cmm (157-399); Red Blood Count 3.18 10^6/uL (3.85-5.65); White Blood Count 15.01 10^3/uL (3.29-11.43)
[2024-02-05 11:46] LABS: Alanine Aminotransferase 7 U/L (0-41); Albumin Level 1.4 g/dL (3.5-5.2); Alkaline Phosphatase 200 U/L (40-130); Aspartate Amino Transferase 8 U/L (0-40); Blood Urea Nitrogen 47 mg/dL (6-20); C Reactive Protein 113.2 mg/L (0.0-4.9); Calcium 6.9 mg/dL (8.5-10.5); Carbon Dioxide 15 mmol/L (22-29); Chloride 103 mmol/L (98-107); Globulin 5.5 g/dL (1.3-4.6); Glomerular Filtration Rate 37.4 mL/min (90-130); Glucose 320 mg/dL (65-115); Osmolality Calculated 297 mOsm/kg (285-295); Sodium 131 mmol/L (136-145); Total Bilirubin 0.2 mg/dL (0.15-1.2); Total Protein 6.9 g/dL (6.6-8.7)
[2024-02-05 11:54] LABS: Creatinine Clr Calc Pharmacy 61.8591
[2024-02-05] MEDS: capsaicin 0.025% cream 60 gm 1 APPLIC TOPICAL (13:20)
[2024-02-05] MEDS: oxyCODONE-APAP 10-325 mg Tablet 1 TAB PO ×2 (14:12→21:19)
[2024-02-05 16:34] LABS: Glucose Point of Care 275 mg/dL (70-110)
--- NOTE | 2024-02-05 18:15 | P.PN_ITS ---
Subjective 2 Subjective: Reports doing well this morning. Denies pain. No events overnight. Medications: Reviewed: Yes Vitals/I&O/Wt Last Vital Signs Temp 97.7 F 02/05/24 15:27 Pulse 86 02/05/24 15:27 Resp 16 02/05/24 15:27 BP 145/86 02/05/24 15:27 Pulse Ox 97 02/05/24 15:27 O2 Del Method Room Air 02/05/24 15:27 O2 Flow Rate 8 02/03/24 16:53 02/05/24 02/05/24 02/05/24 06:59 14:59 22:59 Intake Total 1050 / 4930 2310 / 2310 Output Total 875 / 1675 1000 / 1000 Balance 175 / 3255 1310 / 1310 Weight last 48 hrs Weight 288 lb 9.6 oz Weight 282 lb 14.4 oz Physical Exam 2 Narrative: General: No acute distress. HEENT: Atraumatic normocephalic. Neck: Supple, no thyromegaly. Heart: Regular rate and rhythm without murmur Lungs: Lungs clear to auscultation. Abdomen: soft, non-tender, non-distended. Extremities: Right lower extremity amputation. Left lower extremity with dressing in place. Skin: No rash or lesions on exposed areas. Neuro: No focal motor or sensory deficits. Urinary Catheter Management: Mclain: Cath Placed During This Visit: yes Reason for Continuing Indwelling Catheter: Acute Urinary Retention or Obstruction Urinary Catheter Date of Insertion: 02/04/24 Urinary Catheter Time of Insertion: 04:18 Data 02/05/24 11:18 02/05/24 11:18 Micro: Microbiology 02/03/24 19:08 Blood Culture - Preliminary Blood NEGATIVE TO DATE 02/03/24 19:07 Blood Culture - Preliminary Blood NEGATIVE TO DATE A&P Assessment and plan (1) Gangrene of right foot: (2) Left hallux osteomyelitis: (3) Anemia: (4) Acute kidney injury: (5) Hyponatremia: (6) Elevated blood pressure reading: Plan PLAN FOR TODAY: Continue close inpatient monitoring. General surgery and podiatry are both consulted. Post surgical stay for amputation of Left great toe and right foot. Continue vancomycin and Zosyn for treatment of gas gangrene, sepsis. Blood cultures are currently negative to date. His blood pressure has been better controlled. Currently in the 130-140 systolic range. His sugars remain difficult to control. He is on sliding scale insulin and we will continue. A1c was 10.0. His albumin was low at 2.0. Plan to recheck labs in the morning. His creatinine is improved to 1.9. His sodium is currently at 131. This is likely pseudohyponatremia in the face of elevated sugars. White count continues to improve, currently at 15. Recheck a.m. labs. Code Status: Full IVF: NS at 100 DVT PPx: Heparin GI PPx: Protonix ABx: Vancomycin, Zosyn Diet: Carb consistent, renal diabetic nondialysis Discharge plan: To be determined Attestations 2 Medical Necessity Statement*: Will need continued hospital stay for treatment of gas gangrene requiring surgery and amputation of the right foot and left great toe, osteomyelitis requiring IV antibiotics. Coding Level of Care Code Acute Code for Chg Fwd Moderate MDM includes number and complexity of problems actively addressed during encounter, amount and/or complexity of data reviewed/ordered and described risk of complication, morbidity or mortality of management as documented Diagnoses Gangrene of right foot I96 Left hallux osteomyelitis M86.9 Anemia D64.9 Acute kidney injury N17.9 Hyponatremia E87.1 Elevated blood pressure reading R03.0
--- NOTE | 2024-02-05 19:52 | PM.PN ---
Subjective Subjective: Patient seen at bedside this morning. Doing well. No overnight events. Pain well controlled. Plan for return to OR on Tuesday for closure of BKA. Vitals/I&O/Wt Last Vital Signs Temp 97.7 F 02/05/24 15:27 Pulse 86 02/05/24 15:27 Resp 16 02/05/24 15:27 BP 145/86 02/05/24 15:27 Pulse Ox 97 02/05/24 15:27 O2 Del Method Room Air 02/05/24 15:27 O2 Flow Rate 8 02/03/24 16:53 02/05/24 02/05/24 02/05/24 06:59 14:59 22:59 Intake Total 1050 / 4930 2310 / 2310 720 / 3030 Output Total 875 / 1675 1000 / 1000 750 / 1750 Balance 175 / 3255 1310 / 1310 -30 / 1280 Weight last 48 hrs Weight 288 lb 9.6 oz Weight 282 lb 14.4 oz Physical Exam Narrative: BELOW IS A FOCUSED LOWER EXTREMITY EXAM GENERAL: A&O x 3 VASCULAR: DP/PT pulses diminished DERMATOLOGICAL: Full-thickness ulceration plantar aspect of left hallux interphalangeal joint with granular wound bed hyperkeratotic rim. Malodorous with positive probe to bone. No active drainage. Right lower extremity below the knee amputation dressing intact with no strikethrough noted. MUSCULOSKELETAL: Deferred NEUROLOGICAL: Neurological sensation to the affected foot and ankle is present through L4-S1 dermatomes with no hyper/hypoesthesias, negative Tinel or Valleix's sign IMAGING: Three-view x-rays of bilateral feet taken in the emergency department were personally turbid by me. Right foot shows extensive soft tissue swelling with subcutaneous emphysema diffusely throughout the midfoot and forefoot. Gas appears to be tracking proximally to the level of the talonavicular joint. Ablation of distal phalanx of right hallux consistent with osteomyelitis as well as pathological fractures of fourth and fifth proximal phalanges surrounded by gas. Gas is tracking laterally to the level of the cuboid. Left foot shows increase soft tissue density. Erosive changes of distal phalanx of left hallux consistent with osteomyelitis with foreign bodies present. No subcutaneous emphysema noted on left foot x-rays. Urinary Catheter Management: Mclain: Cath Placed During This Visit: yes Reason for Continuing Indwelling Catheter: Acute Urinary Retention or Obstruction Urinary Catheter Date of Insertion: 02/04/24 Urinary Catheter Time of Insertion: 04:18 Data 02/05/24 11:18 02/05/24 11:18 Micro: Microbiology 02/03/24 19:08 Blood Culture - Preliminary Blood NEGATIVE TO DATE 02/03/24 19:07 Blood Culture - Preliminary Blood NEGATIVE TO DATE A&P Assessment and plan (1) Gangrene of right foot: Status post guillotine below-knee amputation to right DOS 02/03/2024 (2) Gas gangrene: Status post amputation (3) Left hallux osteomyelitis: Plan -Right foot gas gangrene, left foot hallux osteomyelitis -Labs and vitals reviewed -WBC 20.09-->16.27-->15.01 -ESR 99 -CRP 374 -VSS -Cultures blood cultures NGTD -Abx Vanco/Zosyn -Diet: Okay for diet from podiatry standpoint -Patient is status post right guillotine below the knee amputation (02/03/2024) -Left hallux wound was cleaned at bedside this morning. Wound bed is granular. However, there is malodor with positive probe to bone and hyperkeratotic rim. X-rays show underlying osteomyelitis. Discussion was had with patient at bedside this morning regarding treatment options available to him which include PICC line and 6 weeks of IV antibiotics versus hallux amputation partial versus complete. Patient wishes to proceed with left hallux amputation. We will coordinate with Dr. French and perform left hallux amputation during sedation for completion of BKA on Tuesday02/07/24 -Pain Mgmt: Per primary team -Weight bearing: Nonweightbearing -Dressings: Betadine wet-to-dry to left hallux wound change daily -Continue current Abx therapy until ID and Sensitivity results -Trend labs -Discharge plan: To be determined -Podiatry will continue to round on patient daily and provide recommendations Attestations Medical Necessity Statement*: Left hallux osteomyelitis, left hallux amputation for 02/07/24 Coding Level of Care Code Acute Code for [facility] Fwd Diagnoses Gangrene of right foot I96 Gas gangrene A48.0 Left hallux osteomyelitis M86.9
[2024-02-05 21:07] LABS: Glucose Point of Care 244 mg/dL (70-110)
[2024-02-05 22:45] LABS: Vancomycin Trough 22.5 ug/mL (10-15)
--- NOTE | 2024-02-05 23:08 | PC.NURSE ---
Pharmacy notified of elevated trough level. Holding current dose per pharmacy.
[2024-02-06] VITALS (9 sets, daily range): BP systolic 135–181; BP diastolic 61–96; PULSE 84–97; RESP 16–20; TEMP 36.4–37.2; O2SAT 93–99
[2024-02-06] MEDS: piperacillin-tazobactam 3.375 GM in sodium chloride 0.9% (plus) 50 ML IV ×3 (00:42→17:15)
[2024-02-06] MEDS: vancomycin 1,500 MG/300 ML PIGGYBACK 200 MG IV (00:42)
[2024-02-06 04:53] LABS: Alanine Aminotransferase 8 U/L (0-41); Albumin Level 1.9 g/dL (3.5-5.2); Alkaline Phosphatase 259 U/L (40-130); Blood Urea Nitrogen 40 mg/dL (6-20); Carbon Dioxide 16 mmol/L (22-29); Chloride 108 mmol/L (98-107); Creatinine Clr Calc Pharmacy 69.6974; Globulin 4.6 g/dL (1.3-4.6); Glomerular Filtration Rate 42.5 mL/min (90-130); Glucose 208 mg/dL (65-115); Magnesium 2.2 mg/dL (1.7-2.3); Osmolality Calculated 298 mOsm/kg (285-295); Sodium 136 mmol/L (136-145); Total Bilirubin 0.2 mg/dL (0.15-1.2); Total Protein 6.5 g/dL (6.6-8.7)
[2024-02-06 04:58] LABS: Anion Gap 16.7 (5-19); Aspartate Amino Transferase 14 U/L (0-40); Potassium 4.7 mmol/L (3.5-5.1)
[2024-02-06 05:41] LABS: Basophils # 0.1 10^3/uL (0.0-0.1); Basophils % 0.4 %; Eosinophils # 0.2 10^3/uL (0.0-0.8); Eosinophils % 1.3 %; Hematocrit 29.7 % (37-53); Lymphocytes # 1.8 10^3/uL (0.8-4.8); Lymphocytes % 12.4 %; Mean Corpuscular HGB Conc 27.3 g/dL (30-55); Mean Corpuscular Hemoglobin 24.5 pg (27-33); Mean Corpuscular Volume 89.7 fl (82-101); Mean Platelet Volume 9.6 fL (7.4-10.4); Monocytes # 1.3 10^3/uL (0.2-0.9); Monocytes % 9.1 %; Neutrophils # 10.73 10^3/uL (1.8-7.7); Neutrophils % 73.8 %; Nucleated Red Blood Cells % 0 %; Platelet Count 532 10^3/cmm (157-399); Red Blood Count 3.31 10^6/uL (3.85-5.65); Red Cell Distribution Width 15.2 % (12.1-15.1); White Blood Count 14.54 10^3/uL (3.29-11.43)
[2024-02-06] MEDS: heparin 5,000 unit/mL INJ 1 mL 5000 UNIT SUBCUT (05:58)
[2024-02-06 06:18] LABS: Glucose Point of Care 212 mg/dL (70-110)
--- NOTE | 2024-02-06 08:32 | P.PN_ITS ---
Subjective 2 Subjective: Patient seen at bedside this morning. Resting comfortably. No overnight events. Plan for OR tomorrow 02/07/2024 Vitals/I&O/Wt Last Vital Signs Temp 97.7 F 02/06/24 07:47 Pulse 95 02/06/24 07:47 Resp 20 H 02/06/24 07:47 BP 163/93 02/06/24 07:47 Pulse Ox 99 02/06/24 07:47 O2 Del Method Room Air 02/06/24 07:47 O2 Flow Rate 8 02/03/24 16:53 02/05/24 02/06/24 02/06/24 22:59 06:59 14:59 Intake Total 1770 / 4080 650 / 4730 Output Total 750 / 1750 1275 / 3025 Balance 1020 / 2330 -625 / 1705 Weight last 48 hrs Weight 292 lb 14.4 oz Weight 288 lb 9.6 oz Physical Exam 2 Narrative: BELOW IS A FOCUSED LOWER EXTREMITY EXAM GENERAL: A&O x 3 VASCULAR: DP/PT pulses diminished DERMATOLOGICAL: Full-thickness ulceration plantar aspect of left hallux interphalangeal joint with granular wound bed hyperkeratotic rim. Malodorous with positive probe to bone. No active drainage. Right lower extremity below the knee amputation dressing intact with no strikethrough noted. MUSCULOSKELETAL: Deferred NEUROLOGICAL: Neurological sensation to the affected foot and ankle is present through L4-S1 dermatomes with no hyper/hypoesthesias, negative Tinel or Valleix's sign IMAGING: Three-view x-rays of bilateral feet taken in the emergency department were personally turbid by me. Right foot shows extensive soft tissue swelling with subcutaneous emphysema diffusely throughout the midfoot and forefoot. Gas appears to be tracking proximally to the level of the talonavicular joint. Ablation of distal phalanx of right hallux consistent with osteomyelitis as well as pathological fractures of fourth and fifth proximal phalanges surrounded by gas. Gas is tracking laterally to the level of the cuboid. Left foot shows increase soft tissue density. Erosive changes of distal phalanx of left hallux consistent with osteomyelitis with foreign bodies present. No subcutaneous emphysema noted on left foot x-rays. 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 at midnight for procedure 02/07/2024 -Patient is status post right guillotine below the knee amputation (02/03/2024) -Left hallux wound was cleaned at bedside this morning. Wound bed is granular. However, there is malodor with positive probe to bone and hyperkeratotic rim. X-rays show underlying osteomyelitis. Discussion was had with patient at bedside this morning regarding treatment options available to him which include PICC line and 6 weeks of IV antibiotics versus hallux amputation partial versus complete. Patient wishes to proceed with left hallux amputation. We will coordinate with Dr. French and perform left hallux amputation during sedation for completion of BKA tomorrow 02/07/24 -Pain Mgmt: Per primary team -Weight bearing: Nonweightbearing -Dressings: Betadine wet-to-dry to left hallux wound to be left clean, dry, intact until surgery tomorrow 02/07/2024 -Continue current Abx therapy until ID and Sensitivity results -Trend labs -Discharge plan: To be determined -Podiatry will continue to round on patient daily and provide recommendations Attestations 2 Medical Necessity Statement*: Return to OR tomorrow 02/07/2024 Coding Level of Care Code Acute Code for Chg Fwd Diagnoses Gangrene of right foot I96 Gas gangrene A48.0 Left hallux osteomyelitis M86.9
[2024-02-06] MEDS: insulin lispro 100 unit/1 mL SUBCUT ×4 (08:45→21:09)
[2024-02-06] MEDS: pantoprazole DR 40 mg Tablet PO (08:46)
[2024-02-06] MEDS: sodium chloride 0.9% 1,000 ML 100 ML IV (08:48)
--- NOTE | 2024-02-06 09:06 | P.PN_ITS ---
Subjective 2 Subjective: Patient seen and examined. Pain controlled. Denies any nausea or vomiting Vitals/I&O/Wt Last Vital Signs Temp 97.7 F 02/06/24 07:47 Pulse 95 02/06/24 07:47 Resp 20 H 02/06/24 07:47 BP 163/93 02/06/24 07:47 Pulse Ox 99 02/06/24 07:47 O2 Del Method Room Air 02/06/24 07:47 O2 Flow Rate 8 02/03/24 16:53 02/05/24 02/06/24 02/06/24 22:59 06:59 14:59 Intake Total 1770 / 4080 650 / 4730 1000 / 1000 Output Total 750 / 1750 1275 / 3025 Balance 1020 / 2330 -625 / 1705 1000 / 1000 Weight last 48 hrs Weight 292 lb 14.4 oz Weight 288 lb 9.6 oz Physical Exam 2 Narrative: General: No acute distress, awake alert and oriented x 3 Extremities: Right lower extremity dressing intact and not saturated. Edema in right lower extremity almost resolved Urinary Catheter Management: Mclain: Cath Placed During This Visit: yes Reason for Continuing Indwelling Catheter: Acute Urinary Retention or Obstruction Urinary Catheter Date of Insertion: 02/04/24 Urinary Catheter Time of Insertion: 04:18 Data 02/06/24 05:30 02/06/24 04:22 A&P Assessment and plan (1) Gangrene of right foot: Plan Postop day #3 status post right guillotine below-knee amputation He will require a completion right below-knee amputation once the infection and edema have left the right lower extremity. Planning for surgery Tuesday. Podiatry will do a combined surgery on the left foot Medical management per primary Podiatry is managing the left foot Attestations 2 Medical Necessity Statement*: Per primary Coding Level of Care Code 44609 Diagnoses Gangrene of right foot I96
--- NOTE | 2024-02-06 11:26 | P.PN_ITS ---
Subjective 2 Subjective: Patient is going for left below-knee amputation I have encouraged him to consider his disposition plan because he lives alone and he will need a lot of help in next 1 to 2 weeks Upper extremities are swollen asked nurse to discontinue IV fluids Will give him 1 unit PRBC to keep his hemoglobin above good range before surgery Vitals/I&O/Wt Last Vital Signs Temp 97.7 F 02/06/24 07:47 Pulse 95 02/06/24 07:47 Resp 20 H 02/06/24 07:47 BP 163/93 02/06/24 07:47 Pulse Ox 99 02/06/24 07:47 O2 Del Method Room Air 02/06/24 07:47 O2 Flow Rate 8 02/03/24 16:53 02/05/24 02/06/24 02/06/24 22:59 06:59 14:59 Intake Total 1770 / 4080 650 / 4730 1360 / 1360 Output Total 750 / 1750 1275 / 3025 Balance 1020 / 2330 -625 / 1705 1360 / 1360 Weight last 48 hrs Weight 132.857 kg Weight 130.907 kg Physical Exam 2 Narrative: Patient clinically looks fluid overloaded Awake and alert Currently on room air Upper extremities look swollen Mclain catheter in place Abdomen soft Dressing applied on lower extremities Currently on room air awake and alert nonfocal neuroexam Urinary Catheter Management: Mclain: Cath Placed During This Visit: yes Reason for Continuing Indwelling Catheter: Acute Urinary Retention or Obstruction Urinary Catheter Date of Insertion: 02/04/24 Urinary Catheter Time of Insertion: 04:18 Data 02/06/24 05:30 02/06/24 04:22 A&P Assessment and plan (1) Medical non-compliance: (2) Elevated blood pressure reading: (3) Hyponatremia: (4) Renal failure: (5) Acute kidney injury: (6) Anemia: (7) Gas gangrene: (8) Left hallux osteomyelitis: (9) Sepsis: (10) Gangrene of right foot: (11) New onset of congestive heart failure: Plan New onset CHF Give Lasix Will request echo Discontinue IV fluids 02/02 right BKA Going for left BKA 02/06 Consistent carb diet on sliding scale N.p.o. 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
[2024-02-06 11:39] LABS: Glucose Point of Care 265 mg/dL (70-110)
--- NOTE | 2024-02-06 11:44 | USCV_ITS ---
Saul Alexandra Age: 53 Gender: M : 1970 Exam Date: 02/06/2024 14:52 Ordering Phys: Venus Estrada MD Technologist: Exam Location: [facility] [place] Indication: pre op BP: / HR: 94 Rhythm: Sinus Technical Quality: Adequate MEASUREMENTS (Male / Female) Normal Values 2D ECHO LV Diastolic Diameter PLAX 4.8 cm 4.2 - 5.9 / 3.9 - 5.3 cm IVS Diastolic Thickness 1.6 cm 0.6 - 1.0 / 0.6 - 0.9 cm IVS Systolic Thickness 1.8 cm LVPW Diastolic Thickness 1.3 cm 0.6 - 1.0 / 0.6 - 0.9 cm LVPW Systolic Thickness 2.1 cm LVOT Diameter 2.2 cm LV Ejection Fraction 2D Teich 70.6 % LV Ejection Fraction MOD 4C 51.0 % LV Ejection Fraction MOD 2C 63.2 % LV Ejection Fraction 2C AL 63.4 % LA Diameter 4.4 cm RA Systolic Volume 4C AL 48.1 ml RA Systolic Volume 4C MOD 45.1 ml Aorta at Sinotubular Diameter 3.2 cm IVC Diameter 2.8 cm M-MODE LV Ejection Fraction MM Teich 73.2 % IVS Diastolic Thickness MM 1.8 cm 0.6 - 1.0 / 0.6 - 0.9 cm IVS Systolic Thickness MM 2.4 cm LVPW Diastolic Thickness MM 1.5 cm 0.6 - 1.0 / 0.6 - 0.9 cm LVPW Systolic Thickness MM 2.6 cm LA Ao Ratio MM 1.5 AV Cusp Separation MM 2.2 cm DOPPLER MV Peak Velocity 91.0 cm/s MV Area PHT 11.9 cm squared Mitral E to A Ratio 0.4 TR Peak Velocity 117.0 cm/s TR Peak Gradient 5.5 mmHg TV Peak E Velocity 95.0 cm/s Right Atrial Pressure 3.0 mmHg Pulmonary Artery Systolic Pressu 8.5 mmHg PV Peak Velocity 114.0 cm/s FINDINGS Left Ventricle Normal left ventricular size and systolic function, EF 63%. No regional wall motion abnormalities. Right Ventricle The right ventricle is normal in size and function. Right Atrium The right atrium is normal in size. Left Atrium The left atrium is normal in size. Mitral Valve Trace to mild mitral valve regurgitation. Aortic Valve No gross abnormalities noted Tricuspid Valve No gross abnormalities noted Pulmonic Valve No gross abnormalities noted Pericardium No pericardial effusion. Aorta Normal ascending aorta dimension. IVC Normal inferior vena cava. CONCLUSIONS Normal left ventricular size and systolic function, EF 63%. No regional wall motion abnormalities. Trace to mild mitral valve regurgitation. Normal cardiac chamber sizes. There is no pericardial effusion. There are no intracardiac masses. No similar previous studies are available for comparison Dr Nida Zimmerman MD [facility] (Electronically Signed) Final Date: 07 February 2024 09:57 S
[2024-02-06] MEDS: FUROsemide 10 mg/mL SDV 2mL 20 MG IVP (13:06)
--- NOTE | 2024-02-06 15:10 | PC.SOCIAL ---
IMM UPDATED IMM dated and initialed, Copy given to patient and copy placed in chart.
[2024-02-06 16:20] LABS: NT Pro B Type Natriuretic Pept 1883 pg/mL (0-125)
[2024-02-06 17:05] LABS: Glucose Point of Care 264 mg/dL (70-110)
[2024-02-06 20:31] LABS: Glucose Point of Care 254 mg/dL (70-110)
[2024-02-07] VITALS (27 sets, daily range): BP systolic 100–184; BP diastolic 75–103; PULSE 82–101; RESP 14–18; TEMP 36.1–37; O2SAT 92–97
[2024-02-07] MEDS: FUROsemide 10 mg/mL SDV 2mL 20 MG IVP ×3 (00:38→23:33)
[2024-02-07] MEDS: vancomycin 1,500 MG/300 ML PIGGYBACK 200 MG IV (00:38)
[2024-02-07] MEDS: piperacillin-tazobactam 3.375 GM in sodium chloride 0.9% (plus) 50 ML IV ×3 (00:39→17:20)
[2024-02-07 04:34] LABS: Basophils # 0.1 10^3/uL (0.0-0.1); Basophils % 0.6 %; Eosinophils # 0.1 10^3/uL (0.0-0.8); Eosinophils % 0.8 %; Hematocrit 30.4 % (37-53); Lymphocytes # 1.6 10^3/uL (0.8-4.8); Lymphocytes % 11.5 %; Mean Corpuscular HGB Conc 28.9 g/dL (30-55); Mean Corpuscular Hemoglobin 25.1 pg (27-33); Mean Corpuscular Volume 86.6 fl (82-101); Mean Platelet Volume 9.4 fL (7.4-10.4); Monocytes # 0.9 10^3/uL (0.2-0.9); Monocytes % 6.7 %; Neutrophils # 10.68 10^3/uL (1.8-7.7); Neutrophils % 75.6 %; Nucleated Red Blood Cells % 0 %; Platelet Count 643 10^3/cmm (157-399); Red Blood Count 3.51 10^6/uL (3.85-5.65); White Blood Count 14.13 10^3/uL (3.29-11.43)
[2024-02-07 04:48] LABS: Anion Gap 16.2 (5-19); Blood Urea Nitrogen 27 mg/dL (6-20); Calcium 7.4 mg/dL (8.5-10.5); Carbon Dioxide 16 mmol/L (22-29); Chloride 107 mmol/L (98-107); Creatinine Clr Calc Pharmacy 84.6326; Glomerular Filtration Rate 53.2 mL/min (90-130); Glucose 230 mg/dL (65-115); Osmolality Calculated 292 mOsm/kg (285-295); Potassium 4.2 mmol/L (3.5-5.1); Sodium 135 mmol/L (136-145)
[2024-02-07 06:14] LABS: Glucose Point of Care 236 mg/dL (70-110)
[2024-02-07] MEDS: pantoprazole DR 40 mg Tablet PO (08:47)
[2024-02-07] MEDS: insulin lispro 100 unit/1 mL SUBCUT ×3 (08:53→21:12)
--- NOTE | 2024-02-07 09:57 | P.PN_ITS ---
Vitals/I&O/Wt Last Vital Signs Temp 98.2 F 02/07/24 06:58 Pulse 101 H 02/07/24 06:58 Resp 18 02/07/24 06:58 BP 183/103 02/07/24 06:58 Pulse Ox 95 02/07/24 06:58 O2 Del Method Room Air 02/07/24 06:58 O2 Flow Rate 8 02/03/24 16:53 02/06/24 02/07/24 02/07/24 22:59 06:59 14:59 Intake Total 1940 / 3910 350 / 4260 Output Total 3400 / 3400 1600 / 5000 Balance -1460 / 510 -1250 / -740 Weight last 48 hrs Weight 292 lb 4.8 oz Weight 292 lb 14.4 oz Physical Exam 2 Urinary Catheter Management: Mclain: Cath Placed During This Visit: yes Reason for Continuing Indwelling Catheter: Other Urinary Catheter Date of Insertion: 02/04/24 Urinary Catheter Time of Insertion: 04:18 Data 02/07/24 04:04 02/07/24 04:04 A&P Assessment and plan (1) Gangrene of right foot: Plan Postop day #4 status post right guillotine below-knee amputation Right below-knee amputation The risk and benefits of the procedure, including but limited to, bleeding, infection, scar, numbness, pain, phantom limb pain, poor wound healing, need for more proximal amputation, were explained to the patient. He is understanding of the risks and wishes to proceed. Podiatry will do a combined surgery on the left foot Medical management per primary Podiatry is managing the left foot Attestations 2 Medical Necessity Statement*: Per primary Coding Level of Care Code Acute Code for Chg Fwd Diagnoses Gangrene of right foot I96
--- NOTE | 2024-02-07 10:58 | P.ANESASSM_ITS ---
Pre-Anesthetic Assessment Height/Weight: Height 1.78 m Weight 132.585 kg Temp Pulse Resp BP Pulse Ox O2 Del Method O2 Flow Rate 98.2 F 101 H 18 183/103 95 Room Air 8 02/07/24 06:58 02/07/24 06:58 02/07/24 06:58 02/07/24 06:58 02/07/24 06:58 02/07/24 06:58 02/03/24 16:53 Operation Date: 02/03/24 15:00 Proposed Procedures p Guillotine BKA (Below Knee Amputation)(Right) - Laureano French DO Operation Date: 02/07/24 11:50 Proposed Procedures p BKA (Below Knee Amputation)(Right) - Laureano French DO s Amputation Toe/s Hallux Amputation(Left) - Andre Bryan DPM Familial anesthetic complications: None Was Beta Mark taken within 24 hours: N/A Was Clonidine taken within 24 hours: N/A Last intake: Intake Last Liquid Date 02/06/24 Last Liquid Time 20:00 Last Solid Date 02/06/24 Last Solid Time 17:00 Social No alcohol and No tobacco Exam alert, oriented x 3, clear to auscultation bilaterally and regular rate & rhythm Airway Mallampati: Class IV Dentition: chipped (very poor dentition, multiple missing) Comments: Comments: large roberts CV/HEM Congestive Heart Failure and Hypertension shalonda Metabolic Diabetes Mellitus Anesthetic Plan ASA status: 4 Anesthesia: General Risk of > 500 ml blood loss (7ml/kg in children): No Medications/Allergies Home Medications Medication Instructions Recorded Confirmed Last Taken Type No Known Home Medications 02/05/24 02/05/24 Unknown History Allergies Allergy/AdvReac Type Severity Reaction Status Date / Time No Known Allergies Allergy Verified 02/03/24 12:00 Current Medications Generic Name Dose Route Start Last Admin Trade Name Freq PRN Reason Stop Dose Admin Acetaminophen 650 mg 02/03/24 17:15 02/05/24 05:51 Acetaminophen 325 Mg Tablet PO 650 mg Q6H PRN Administration Mild/Mod Pain Or Temp >/= 101 Capsaicin 1 applic 02/05/24 09:45 02/05/24 13:20 Capsaicin 0.025% Cream 60 Gm TOPICAL 1 applic QID PRN Administration PAIN Furosemide 20 mg 02/06/24 12:00 02/07/24 00:38 Furosemide 10 Mg/Ml Sdv 2ml IVP 20 mg Q12H DIPTI Administration Heparin Sodium (Porcine) 5,000 unit 02/03/24 17:30 02/06/24 05:58 Heparin 5,000 Unit/Ml Inj 1 Ml SUBCUT 5,000 unit Q12H DIPTI Administration Piperacillin Sod/Tazobactam 50 mls @ 12.5 mls/hr 02/03/24 16:30 02/07/24 08:55 Sod 3.375 gm/ Sodium Chloride IV 12.5 mls/hr Q8H DIPTI Administration Vancomycin HCl 1,500 mg in 300 mls @ 200 mls/hr 02/06/24 01:00 02/07/24 02:28 Vancocin IV Infused Q24H DIPTI Infusion Insulin Human Lispro 0 unit 02/03/24 18:00 02/07/24 08:53 Insulin Lispro 100 Unit/1 Ml SUBCUT 6 unit WM&BEDTIME DIPTI Administration Protocol Oxycodone/Acetaminophen 1 tab 02/03/24 17:15 02/05/24 21:19 Oxycodone-Apap 10-325 Mg Tablet PO 1 tab Q6H PRN Administration MODERATE PAIN Pantoprazole Sodium 40 mg 02/04/24 09:00 02/07/24 08:[address] 40 Mg Tablet PO 40 mg DAILY DIPTI Administration [facility] Anesthesia Medical History (Updated 02/06/24 @ 11:44 by Venus Estrada MD) Diabetes mellitus Surgical History (Updated 02/03/24 @ 16:55 by Raphael Schwartz MD) History of facial surgery Social History (Updated 02/03/24 @ 16:55 by Raphael Schwartz MD) Smoking and tobacco/nicotine status: never used tobacco/nicotine Alcohol intake: never Data Anesthesia 02/07/24 04:04 02/07/24 04:04 Short CBC 02/05/24 02/06/24 02/06/24 Range/Units 11:18 04:22 05:30 WBC 15.01 H Cancelled 14.54 H (3.29-11.43) 10^3/uL Hgb 8.10 L Cancelled 8.10 L (11.27-16.99) g/dL Hct 28.4 L Cancelled 29.7 L (37-53) % MCV 89.3 Cancelled 89.7 (82-101) fl Plt Count 594 H Cancelled 532 H (157-399) 10^3/cmm Neut % (Auto) 74.9 Cancelled 73.8 % Neut # (Auto) 11.24 H Cancelled 10.73 H (1.8-7.7) 10^3/uL 02/07/24 Range/Units 04:04 WBC 14.13 H (3.29-11.43) 10^3/uL Hgb 8.80 L (11.27-16.99) g/dL Hct 30.4 L (37-53) % MCV 86.6 (82-101) fl Plt Count 643 H (157-399) 10^3/cmm Neut % (Auto) 75.6 % Neut # (Auto) 10.68 H (1.8-7.7) 10^3/uL BMP 02/05/24 02/06/24 02/07/24 11:18 04:22 04:04 Sodium 131 L 136 135 L Potassium 4.0 4.7 4.2 Chloride 103 108 H 107 Carbon Dioxide 15 L 16 L 16 L BUN 47 H 40 H 27 H Creatinine 1.9 H 1.7 H 1.4 H Glucose 320 H 208 H 230 H Calcium 6.9 L 7.0 L 7.4 L Cardiac Enzymes 02/06/24 Range/Units 14:46 NT-Pro-B Natriuret Pep 1883 H (0-125) pg/mL Liver Function 02/05/24 02/06/24 Range/Units 11:18 04:22 Total Bilirubin 0.2 0.2 (0.15-1.2) mg/dL AST 8 14 (0-40) U/L ALT 7 8 (0-41) U/L Alkaline Phosphatase 200 H 259 H (40-130) U/L Albumin 1.4 L 1.9 L (3.5-5.2) g/dL Blood Bank 02/03/24 14:02 Blood Type A Positive Rho(D) Type Rh positive Antibody Screen Negative Coags 02/05/24 11:18 C-Reactive Protein 113.2 H Cardiac Studies: 2 Echocardiogram 02/06/24
--- NOTE | 2024-02-07 11:27 | P.PN_ITS ---
Subjective 2 Subjective: Patient is hypertensive New onset CHF Given extra dose of diuretic added hydralazine Vitals/I&O/Wt Last Vital Signs Temp 98.2 F 02/07/24 06:58 Pulse 101 H 02/07/24 06:58 Resp 18 02/07/24 06:58 BP 183/103 02/07/24 06:58 Pulse Ox 95 02/07/24 06:58 O2 Del Method Room Air 02/07/24 06:58 O2 Flow Rate 8 02/03/24 16:53 02/06/24 02/07/24 02/07/24 22:59 06:59 14:59 Intake Total 1940 / 3910 350 / 4260 Output Total 3400 / 3400 1600 / 5000 Balance -1460 / 510 -1250 / -740 Weight last 48 hrs Weight 132.585 kg Weight 132.857 kg Physical Exam 2 Narrative: Active sign of fluid overload Complaining orthopnea Hypertensive No active chest pain On room air Awake and alert Nonfocal neuroexam Urinary Catheter Management: Mclain: Cath Placed During This Visit: yes Reason for Continuing Indwelling Catheter: Other Urinary Catheter Date of Insertion: 02/04/24 Urinary Catheter Time of Insertion: 04:18 Data 02/07/24 04:04 02/07/24 04:04 A&P Assessment and plan (1) Medical non-compliance: (2) Elevated blood pressure reading: (3) New onset of congestive heart failure: (4) Acute kidney injury: (5) Anemia: (6) Gas gangrene: (7) Left hallux osteomyelitis: (8) Gangrene of right foot: (9) Sepsis: Plan New onset CHF Patient will need IV diuresis Echo report is pending No active chest pain or shortness of breath Currently doing well on room air Going for surgery today Patient agreeable for SNF placement Full code Continue Mclain catheter for diuresis IV antibiotics for now After amputation we might be able to do p.o. regimen instead of IV Likely will stay till Attestations 2 Medical Necessity Statement*: Continue medical management Diagnoses Medical non-compliance Z91.199 Elevated blood pressure reading R03.0 New onset of congestive heart failure I50.9 Acute kidney injury N17.9 Anemia D64.9 Gas gangrene A48.0 Left hallux osteomyelitis M86.9 Gangrene of right foot I96 Sepsis A41.9
--- NOTE | 2024-02-07 12:22 | PM.OP ---
Operative Report Date of procedure: February 07, 2024 Pre-op diagnosis: Gas gangrene right foot Post-op diagnosis: same Procedure done: Right below-knee amputation Implants: None Specimens removed/disposition: Right leg Surgeon: Laureano French DO Anesthesia: General Estimated blood loss (mL): 50 Complications: None apparent Brief History: This is a very pleasant 53-year-old gentleman who presented to the hospital with gas gangrene of his right foot. He underwent a guillotine right below-knee amputation and the infection and edema were allowed to drain. He was brought back today for a completion right below-knee amputation. The risks and benefits were explained and documented. Procedure: Patient was wheeled operative room placed on the OR table in the supine position. Left lower extremity was inspected prepped and draped in usual sterile fashion. A time was performed. All present were in agreement. I then put a miladis on his left tibia 1 handbreadth below the plateau. The diameter of his leg at this location was measured. A transverse line was made two thirds of the diameter on the anterior surface and then lines were made from there inferiorly for one third of the diameter and then the posterior one third was connected with a line inferior to this. A tourniquet was placed around the thigh and inflated to 300 mmHg a 10 blade scalpel was used to incise the skin along the drawn line. Electrocautery was used to dissect down through the subcutaneous tissue. A periosteal elevator was used to dissect tissue off of the tibia and fibula proximally. A bone saw was then used to transect through the tibia 2 cm proximal to the skin incision and through the fibula 1 cm proximal to this. An amputation knife was then used to cut down through muscle and subcutaneous tissue. Leg specimen was passed off. Large vessels were tied off with 0 silk. The tourniquet was then let down. Total tourniquet time was 6 minutes. Spot bleeding was controlled with electrocautery. The fascia of the posterior leg was then sewn to the fascia of the anterior leg over the tibia and fibula using 0 Vicryl suture in an interrupted fashion. Dermis was approximated using 2-0 Vicryl suture in interrupted fashion. Skin was closed using duncan. Sterile bandages were applied. Patient tolerated procedure well.
[2024-02-07] MEDS: BUPivacaine 0.5% INJ 30 mL INJECTION (12:55)
--- NOTE | 2024-02-07 13:08 | P.OP_ITS ---
Operative Report Date of procedure: February 07, 2024 Pre-op diagnosis: Gas gangrene right foot Surgeon: Andre Bryan DPM Procedure: Date of procedure: 02/07/2024 Pre-op diagnosis: Left hallux osteomyelitis Post-op diagnosis: Same Post-op findings: Left hallux osteomyelitis. First metatarsal head free from infection. Remaining tissue healthy and viable Procedure done: Left hallux amputation CPT 35477 Implants: None Specimens removed: Left hallux Surgeon: Dr. Andre Bryan DPM Rv Body Mechanic: Alisa Estimated blood loss: 5 cc Tourniquet time: 11 minutes Complications: None The patient presents with a severe foot infection involving left hallux, characterized by erythema, swelling, and drainage. The infection is complicated by underlying conditions, including diabetes, which have contributed to the progression of the infection despite conservative management. Preoperative imaging and laboratory results indicate osteomyelitis, necessitating surgical intervention. The planned procedure is intended to address the infection, debride necrotic tissue, and, if necessary, assess the viability of surrounding structures to prevent further complications. The patient has been NPO since midnight. The history has been reviewed and the history and physical is current. The signed consent was confirmed and placed in the patient chart. Patient imaging has been reviewed and is consistent with the diagnosis. Under mild sedation, the patient was brought into the operating room and placed on the table in the supine position. Patient underwent below-knee amputation to right lower extremity by general surgery prior to our procedure in the operating room. Patient is receiving antibiotics around the clock on the floor, general sedation was then performed by the anesthesiateam. A pneumatic tourniquet was then placed about the left ankle. The operative extremity was then prepped and draped in the usual fashion. after prep, the following procedure was then performed. The tourniquet was inflated 250 mmHg Attention was directed to the left hallux where a racquet style incision was made circumferentially about the hallux with care to preserve as much soft tissue as possible. Dissection was carried full-thickness down to level of bone. Dissection was carried out to the level of the first metatarsophalangeal joint. The collateral ligaments and attachments of the first metatarsal phalangeal joint capsule were excised. A penetrating towel clamp was then used to grasp the end of the hallux to joystick the hallux for amputation. All connections of the first metatarsophalangeal joint were released using a #15 blade. The hallux was then passed from the operative field be sent as specimen. The remaining tissues appeared healthy and viable in nature. The metatarsal head appeared healthy without any degenerative changes. The flexor and extensor tendons were then grasped and pulled distally before being incised as proximally as possible using a #15 blade. All remaining tissue appeared healthy. The site was then irrigated with copious amounts of sterile saline via cystoscopy tubing. The amputation site was then closed using 3-0 nylon in simple interrupted, horizontal mattress and retention type fashion. The tourniquet was let down and good hyperemic response was noted to all remaining digits of the operative extremity. The incision site was then dressed with Xeroform, 4 x 4 gauze, ABD, Kerlix, Álvaro The patient tolerated the procedure and anesthesia well and without complication. The patient was transported from the operating room to the rec overy room with vital signs stable and vascular status intact to all remaining digits of the left foot. Thepatient was instructed to remain nonweightbearing to the operative extremity, to keep surgical dressing clean, dry and intact. The patient will be transferred back to the floor once anesthesia criteria is met. I will continue to round on and follow the patient in the inpatientsetting and provide recommendations to stabilize the patient for discharge. Patient be okay to discharge home based on intraoperative findings without long- term IV antibiotic therapy. Remaining tissue appeared healthy and viable.
[2024-02-07] MEDS: fentaNYL 50 mcg/mL INJ 2mL IVP ×2 (13:20→13:50)
[2024-02-07] MEDS: HYDROmorphone 1 mg/mL INJ 1 mL 0.5 MG IVP ×2 (13:35→13:45)
--- NOTE | 2024-02-07 14:15 | ANES.PROC ---
Anesthesia Procedures Procedure/Date: 02/07/24 Nerve Block ^: Nerve Block 1: Main Anesthesia: general anesthesia Time Out Performed: Yes Consent: from patient, risks and benefits reviewed and patient agrees to proceed Nerve block location: adductor canal (R) Anesthesia monitors applied: pulse oximetry, EKG, BP cuff and oxygen Nerve block position: supine Anesthetic Used: ropivicaine 0.5% (20 ml) and with decadron (2 mg) Ultrasound used to: recognize landmarks and visualize and ID femerol nerve Interscalene/Femoral BLK: 4 stimuplex 21 g needle used for position and inplane approach, visualize local anesthetic spread and no vascular puncture identified Injection: neg aspiration of heme Patient Tolerated Procedure: well Complications: none
--- NOTE | 2024-02-07 14:40 | ANE.PACU2 ---
Inpatient post-anesthesia follow up: Airway intact: Yes Vital signs: Temperature 98.6 F Pulse Rate 93 Respiratory Rate 17 Blood Pressure 148/78 Pulse Oximetry 97 Oxygen Delivery Me thod [ Room Air Current Rate & Del peterson] Oxygen Delivery Me thod Room Air Oxygen Flow Rate 8 Fraction of Inspir ed Oxygen Hydration adequate: Yes Nausea and vomiting: No Pain level: 1 Mental status: Baseline
[2024-02-07 16:52] LABS: Glucose Point of Care 321 mg/dL (70-110)
[2024-02-07] MEDS: heparin 5,000 unit/mL INJ 1 mL 5000 UNIT SUBCUT (17:01)
[2024-02-07] MEDS: oxyCODONE-APAP 10-325 mg Tablet 1 TAB PO ×2 (17:01→23:32)
[2024-02-07] MEDS: HYDROmorphone 1 mg/mL INJ 1 mL IVP (20:20)
[2024-02-07 20:38] LABS: Glucose Point of Care 292 mg/dL (70-110)
[2024-02-08] VITALS (13 sets, daily range): BP systolic 143–163; BP diastolic 78–86; PULSE 88–93; RESP 16–20; TEMP 36.6–37.2; O2SAT 95–99
[2024-02-08] MEDS: piperacillin-tazobactam 3.375 GM in sodium chloride 0.9% (plus) 50 ML IV ×2 (00:19→07:30)
[2024-02-08 00:48] LABS: Vancomycin Trough 17.7 ug/mL (10-15)
[2024-02-08] MEDS: vancomycin 1,500 MG/300 ML PIGGYBACK 200 MG IV (01:12)
[2024-02-08] MEDS: heparin 5,000 unit/mL INJ 1 mL 5000 UNIT SUBCUT ×2 (04:41→17:38)
[2024-02-08] MEDS: HYDROmorphone 1 mg/mL INJ 1 mL IVP ×5 (04:52→23:38)
[2024-02-08 05:09] LABS: Basophils # 0.1 10^3/uL (0.0-0.1); Basophils % 0.3 %; Eosinophils % 0.2 %; Hematocrit 28.1 % (37-53); Lymphocytes # 1.6 10^3/uL (0.8-4.8); Lymphocytes % 8.6 %; Mean Corpuscular HGB Conc 29.2 g/dL (30-55); Mean Corpuscular Hemoglobin 25.1 pg (27-33); Mean Corpuscular Volume 85.9 fl (82-101); Mean Platelet Volume 9.2 fL (7.4-10.4); Monocytes % 5.2 %; Neutrophils # 15.41 10^3/uL (1.8-7.7); Neutrophils % 82.6 %; Nucleated Red Blood Cells % 0 %; Platelet Count 607 10^3/cmm (157-399); Red Blood Count 3.27 10^6/uL (3.85-5.65); Red Cell Distribution Width 14.9 % (12.1-15.1); White Blood Count 18.67 10^3/uL (3.29-11.43)
[2024-02-08 05:30] LABS: Blood Urea Nitrogen 26 mg/dL (6-20); Calcium 7.5 mg/dL (8.5-10.5); Carbon Dioxide 18 mmol/L (22-29); Chloride 108 mmol/L (98-107); Creatinine Clr Calc Pharmacy 84.5376; Glomerular Filtration Rate 53.2 mL/min (90-130); Glucose 233 mg/dL (65-115); Osmolality Calculated 296 mOsm/kg (285-295); Sodium 137 mmol/L (136-145)
[2024-02-08 05:32] LABS: Anion Gap 15.4 (5-19); Potassium 4.4 mmol/L (3.5-5.1)
[2024-02-08 06:23] LABS: Glucose Point of Care 245 mg/dL (70-110)
[2024-02-08] MEDS: insulin lispro 100 unit/1 mL SUBCUT ×4 (07:29→21:25)
--- NOTE | 2024-02-08 07:56 | P.PN_ITS ---
Subjective 2 Subjective: Patient seen at bedside this morning. Doing well. No overnight events. S/p right BKA and left hallux amputation Vitals/I&O/Wt Last Vital Signs Temp 98.9 F 02/08/24 07:43 Pulse 88 02/08/24 07:43 Resp 16 02/08/24 07:43 BP 163/85 02/08/24 07:43 Pulse Ox 95 02/08/24 07:43 O2 Del Method Room Air 02/08/24 07:43 O2 Flow Rate 8 02/03/24 16:53 02/07/24 02/08/24 02/08/24 22:59 06:59 14:59 Intake Total 850 / 900 1950 / 2850 120 / 120 Output Total 1000 / 1175 1000 / 2175 Balance -150 / -275 950 / 675 120 / 120 Weight last 48 hrs Weight 292 lb 4.8 oz Weight 292 lb 4.8 oz Physical Exam 2 Narrative: BELOW IS A FOCUSED LOWER EXTREMITY EXAM GENERAL: A&O x 3 VASCULAR: DP/PT pulses diminished DERMATOLOGICAL: Left foot surgical dressing clean, dry and intact MUSCULOSKELETAL: Deferred NEUROLOGICAL: Neurological sensation to the affected foot and ankle is present through L4-S1 dermatomes with no hyper/hypoesthesias, negative Tinel or Valleix's sign IMAGING: Three-view x-rays of bilateral feet taken in the emergency department were personally turbid by me. Right foot shows extensive soft tissue swelling with subcutaneous emphysema diffusely throughout the midfoot and forefoot. Gas appears to be tracking proximally to the level of the talonavicular joint. Ablation of distal phalanx of right hallux consistent with osteomyelitis as well as pathological fractures of fourth and fifth proximal phalanges surrounded by gas. Gas is tracking laterally to the level of the cuboid. Left foot shows increase soft tissue density. Erosive changes of distal phalanx of left hallux consistent with osteomyelitis with foreign bodies present. No subcutaneous emphysema noted on left foot x-rays. Urinary Catheter Management: Mclain: Cath Placed During This Visit: yes Reason for Continuing Indwelling Catheter: Acute Urinary Retention or Obstruction Urinary Catheter Date of Insertion: 02/04/24 Urinary Catheter Time of Insertion: 04:18 Data 02/08/24 04:51 02/08/24 04:51 A&P Assessment and plan (1) Gangrene of right foot: Status post guillotine below-knee amputation to right DOS 02/03/2024 (2) Gas gangrene: Status post amputation (3) Left hallux osteomyelitis: Plan -Right foot gas gangrene, left foot hallux osteomyelitis -Labs and vitals reviewed -WBC 20.09-->16.27-->15.01 -ESR 99 -CRP 374 -VSS -Cultures blood cultures NGTD -Abx Vanco/Zosyn -Diet: ok for diet -Patient is status post right guillotine below the knee amputation (02/03/2024)closure (02/07/24) -s/p left hallux amputation -Pain Mgmt: Per primary team -Weight bearing: Nonweightbearing -Dressings: Betadine wet-to-dry to left hallux wound to be left clean, dry, intact until surgery tomorrow 02/07/2024 -Trend labs -Discharge plan: ok to discharge from podiatry standpoint. Follow up within 1 week of discharge -Podiatry will continue to round on patient daily and provide recommendations Attestations 2 Medical Necessity Statement*: right BKA and left hallux ampuation gas gangrene Coding Level of Care Code Acute Code for [facility] Fwd Diagnoses Gangrene of right foot I96 Gas gangrene A48.0 Left hallux osteomyelitis M86.9
[2024-02-08] MEDS: pantoprazole DR 40 mg Tablet PO (08:29)
[2024-02-08] MEDS: oxyCODONE-APAP 10-325 mg Tablet 1 TAB PO ×2 (08:39→14:23)
--- NOTE | 2024-02-08 08:51 | P.PN_ITS ---
Subjective 2 Subjective: Patient seen and examined. Pain controlled Vitals/I&O/Wt Last Vital Signs Temp 98.9 F 02/08/24 07:43 Pulse 88 02/08/24 07:43 Resp 18 02/08/24 08:39 BP 163/85 02/08/24 07:43 Pulse Ox 95 02/08/24 07:43 O2 Del Method Room Air 02/08/24 07:43 O2 Flow Rate 8 02/03/24 16:53 02/07/24 02/08/24 02/08/24 22:59 06:59 14:59 Intake Total 850 / 900 1950 / 2850 120 / 120 Output Total 1000 / 1175 1000 / 2175 Balance -150 / -275 950 / 675 120 / 120 Weight last 48 hrs Weight 292 lb 4.8 oz Weight 292 lb 4.8 oz Physical Exam 2 Narrative: General: No acute distress, awake alert and oriented x 3 Extremities: Right lower extremity BKA stump appropriately tender, dressings clean dry and intact Urinary Catheter Management: Mclain: Cath Placed During This Visit: yes Reason for Continuing Indwelling Catheter: Acute Urinary Retention or Obstruction Urinary Catheter Date of Insertion: 02/04/24 Urinary Catheter Time of Insertion: 04:18 Data 02/08/24 04:51 02/08/24 04:51 A&P Assessment and plan (1) Gas gangrene: (2) Gangrene of right foot: Plan Postoperative day #5 status post right guillotine below-knee amputation for gas gangrene of the foot Postoperative day #1 status post right completion below-knee amputation Starting tomorrow, cover incision daily with clean dry dressing after washing with soap and water. Do not soak incision underwater until duncan removed Follow-up in my office in 2 weeks Surgically stable for discharge Attestations 2 Medical Necessity Statement*: Per primary Coding Level of Care Code 70758 Diagnoses Gas gangrene A48.0 Gangrene of right foot I96
[2024-02-08] MEDS: lactulose oral liq 20 gm/30 mL UDC 10 GM PO (09:27)
--- NOTE | 2024-02-08 09:49 | PC.SOCIAL ---
IMM Updated IMM dated and initialed, copy placed in chart and given to patient.
--- NOTE | 2024-02-08 10:23 | P.PN_ITS ---
Subjective 2 Subjective: Patient not endorsing any complaints I would like to diurese for 1 more day with IV Lasix I will increase the dose Blood pressure still high Likely will be discharged by tomorrow Patient is agreeable for fpc placement Will use oral antibiotics at the time of discharge with Mclain catheter removal No bowel movement since admission we will give lactulose Vitals/I&O/Wt Last Vital Signs Temp 98.9 F 02/08/24 07:43 Pulse 88 02/08/24 07:43 Resp 18 02/08/24 08:39 BP 163/85 02/08/24 07:43 Pulse Ox 95 02/08/24 07:43 O2 Del Method Room Air 02/08/24 07:43 O2 Flow Rate 8 02/03/24 16:53 02/07/24 02/08/24 02/08/24 22:59 06:59 14:59 Intake Total 850 / 900 1950 / 2850 120 / 120 Output Total 1000 / 1175 1000 / 2175 Balance -150 / -275 950 / 675 120 / 120 Weight last 48 hrs Weight 132.585 kg Weight 132.585 kg Physical Exam 2 Narrative: Signs of fluid overload present Hypertensive Currently room air Foot covered with dressing Distended abdomen nontender S1, S2 No audible stridor or wheezing Urinary Catheter Management: Mclain: Cath Placed During This Visit: yes Reason for Continuing Indwelling Catheter: Acute Urinary Retention or Obstruction Urinary Catheter Date of Insertion: 02/04/24 Urinary Catheter Time of Insertion: 04:18 Data 02/08/24 04:51 02/08/24 04:51 A&P Assessment and plan (1) Medical non-compliance: (2) Elevated blood pressure reading: (3) New onset of congestive heart failure: (4) Acute kidney injury: (5) Anemia: (6) Gas gangrene: (7) Left hallux osteomyelitis: (8) Gangrene of right foot: (9) Sepsis: Plan Patient is status post right guillotine below the knee amputation (02/03/2024)closure (02/07/24) 02/06 left hallux amputation Patient may need oral antibiotics at discharge Will remove Mclain catheter as well by tomorrow New onset diastolic CHF: Continue IV diuresis Optimize antibiotics regimen Constipation: Given lactulose today Anemia of chronic disease: Hemoglobin 8.2 Nonweightbearing Betadine wet-to-dry dressing starting tomorrow Start DVT prophylaxis Consistent carb diet Attestations 2 Medical Necessity Statement*: Continue medical management Diagnoses Medical non-compliance Z91.199 Elevated blood pressure reading R03.0 New onset of congestive heart failure I50.9 Acute kidney injury N17.9 Anemia D64.9 Gas gangrene A48.0 Left hallux osteomyelitis M86.9 Gangrene of right foot I96 Sepsis A41.9
[2024-02-08] MEDS: FUROsemide 10 mg/mL SDV 4mL 40 MG IVP ×2 (10:31→21:25)
[2024-02-08] MEDS: sodium bicarbonate 650 mg Tablet PO ×3 (10:53→21:24)
[2024-02-08] MEDS: hyDRALAzine 25 mg Tablet PO ×3 (10:53→21:24)
[2024-02-08 11:02] LABS: Glucose Point of Care 272 mg/dL (70-110)
[2024-02-08 17:02] LABS: Glucose Point of Care 241 mg/dL (70-110)
[2024-02-08] MEDS: doxycycline 100 mg Tablet PO (17:38)
[2024-02-08] MEDS: amoxicillin-clav 875-125 mg Tablet 1 TAB PO (17:38)
[2024-02-08 21:08] LABS: Glucose Point of Care 221 mg/dL (70-110)
[2024-02-08] MEDS: metoprolol tartrate 25 mg Tablet PO (21:24)
[2024-02-09] VITALS (7 sets, daily range): BP systolic 157–187; BP diastolic 82–98; PULSE 84–90; RESP 16–18; TEMP 36.7–37.1; O2SAT 93–97
[2024-02-09] MEDS: HYDROmorphone 1 mg/mL INJ 1 mL IVP (03:15)
[2024-02-09] MEDS: oxyCODONE-APAP 10-325 mg Tablet 1 TAB PO ×2 (05:42→11:46)
[2024-02-09] MEDS: heparin 5,000 unit/mL INJ 1 mL 5000 UNIT SUBCUT (05:43)
[2024-02-09 06:26] LABS: Glucose Point of Care 273 mg/dL (70-110)
[2024-02-09] MEDS: insulin lispro 100 unit/1 mL SUBCUT ×2 (08:37→11:41)
[2024-02-09] MEDS: pantoprazole DR 40 mg Tablet PO (08:38)
[2024-02-09] MEDS: isosorbide mononitrate ER 30 mg Tablet PO (08:38)
[2024-02-09] MEDS: lactulose oral liq 20 gm/30 mL UDC 10 GM PO (08:38)
[2024-02-09] MEDS: doxycycline 100 mg Tablet PO (08:38)
[2024-02-09] MEDS: amoxicillin-clav 875-125 mg Tablet 1 TAB PO (08:38)
[2024-02-09] MEDS: hyDRALAzine 25 mg Tablet PO (08:39)
[2024-02-09] MEDS: sodium bicarbonate 650 mg Tablet PO (08:39)
[2024-02-09] MEDS: metoprolol tartrate 25 mg Tablet PO (08:39)
[2024-02-09 09:20] LABS: SARS Covid-2 Antigen negative (Negative)
--- NOTE | 2024-02-09 10:13 | P.DS_ITS ---
Discharge Providers Date of Admission: 02/03/24 16:15 Date of Discharge: February 09, 2024 Attending Provider at Admission: Laureano French DO Attending Provider at Discharge: Venus Estrada MD Diagnoses at Discharge Discharge Diagnosis (1) Medical non-compliance: Status: Acute (2) Elevated blood pressure reading: Status: Acute (3) New onset of congestive heart failure: Status: Acute (4) Acute kidney injury: Status: Acute (5) Anemia: Status: Acute (6) Gas gangrene: Status: Acute (7) Left hallux osteomyelitis: Status: Acute (8) Gangrene of right foot: Status: Acute (9) Sepsis: Status: Acute Reason for Visit Reason for Visit: rt foot infection, sepsis Hospital Course Hospital Course 53-year-old male, noncompliant came from assisted for chief complaint of worsening of bilateral foot ulcers. Patient was diagnosed with gangrene of right foot on 02/02 in the ER, Dr. Muhammad was consulted patient went to the OR same day for right below-knee amputation, then closure 02/06, patient also went for left hallux amputation 02/06, he was diagnosed with new onset CHF and type 2 diabetes, he also has chronic kidney disease, at the assisted patient was not taking any medications, these diagnoses are new, patient also seems very depressed and withdrawn, at the time of discharge she will get medications for congestive heart failure i.e. Bumex and potassium supplementation. He is echo showed preserved ejection fraction with diastolic dysfunction. He did not require oxygen. For hypertension I have added isosorbide mononitrate, hydralazine, metoprolol, For type 2 diabetes added Lantus, medium intensity sliding scale and Januvia. Physical Exam Urinary Catheter Management: Mclain: Cath Placed During This Visit: yes, but has since been removed by the nurse Reason for Continuing Indwelling Catheter: Other Urinary Catheter Date of Insertion: 02/04/24 Urinary Catheter Time of Insertion: 04:18 Date Urinary Catheter Removed: 02/09/24 Time Urinary Catheter Discontinued: 08:48 Discharge Data Studies Completed and Pending Completed Studies During Hospitalization Category Date Time Status XR foot LT min 3V* [id number] Stat Exams 02/03/24 12:02 Completed XR foot RT min 3V* [id number] Stat Exams 02/03/24 12:02 Completed CV. echo complete* [id number] Routine Ultrasound 02/06/24 11:44 Completed US renal BI* [id number] Routine Ultrasound 02/04/24 16:01 Completed Pending at discharge Category Date Time Status Fecal Occult Blood [Immunochemical Fecal OCB] Routine Lab 02/03/24 16:01 Uncollected Pathology: Surgical [PTH] Routine Pth 02/03/24 16:39 Received Pathology: Surgical [PTH] Routine Pth 02/07/24 13:00 Received Radiology Impressions Foot X-Ray 02/03/24 12:02 Impression: Marked soft tissue swelling is identified with soft tissue gas consistent with infection by a gas-forming organism. There is osteomyelitis involving the right fourth proximal phalanx. I discussed these findings with Dr. Fulton in the emergency room at 12:37 p.m. 02/03/2024. He had already obtained a surgical consultation. Renal Ultrasound 02/04/24 16:01 IMPRESSION: No hydronephrosis. Laboratory Results WBC 18.67 10^3/uL (3.29-11.43) H 02/08/24 04:51 Corrected WBC Cancelled 02/06/24 04:22 RBC 3.27 10^6/uL (3.85-5.65) L 02/08/24 04:51 Hgb 8.20 g/dL (11.27-16.99) L 02/08/24 04:51 Hct 28.1 % (37-53) L 02/08/24 04:51 MCV 85.9 fl (82-101) 02/08/24 04:51 MCH 25.1 pg (27-33) L 02/08/24 04:51 MCHC 29.2 g/dL (30-55) L 02/08/24 04:51 RDW 14.9 % (12.1-15.1) 02/08/24 04:51 Plt Count 607 10^3/cmm (157-399) H 02/08/24 04:51 MPV 9.2 fL (7.4-10.4) 02/08/24 04:51 Gran % Cancelled 02/06/24 04:22 Neut % (Auto) 82.6 % 02/08/24 04:51 Lymph % (Auto) 8.6 % 02/08/24 04:51 [place] % (Auto) 5.2 % 02/08/24 04:51 Eos % (Auto) 0.2 % 02/08/24 04:51 Baso % (Auto) 0.3 % 02/08/24 04:51 Neut # (Auto) 15.41 10^3/uL (1.8-7.7) H 02/08/24 04:51 Lymph # (Auto) 1.6 10^3/uL (0.8-4.8) 02/08/24 04:51 [place] # (Auto) 1.0 10^3/uL (0.2-0.9) H 02/08/24 04:51 Eos # (Auto) 0.0 10^3/uL (0.0-0.8) 02/08/24 04:51 Baso # (Auto) 0.1 10^3/uL (0.0-0.1) 02/08/24 04:51 Absolute Gran (auto) Cancelled 02/06/24 04:22 Nucleated RBC % (auto) 0 % 02/08/24 04:51 Nucleated RBCs # 0.0 /100WBC 02/08/24 04:51 ESR 99 mm/hr (0-10) H 02/03/24 13:15 PT 16.50 SECONDS (12.1-14.9) H 02/03/24 13:15 INR 1.29 (0.8-1.2) H 02/03/24 13:15 APTT 31.1 SECONDS (23.9-36.7) 02/03/24 13:15 Sodium 137 mmol/L (136-145) 02/08/24 04:51 Potassium 4.4 mmol/L (3.5-5.1) 02/08/24 04:51 Chloride 108 mmol/L (98-107) H 02/08/24 04:51 Carbon Dioxide 18 mmol/L (22-29) L 02/08/24 04:51 Anion Gap 15.4 (5-19) 02/08/24 04:51 BUN 26 mg/dL (6-20) H 02/08/24 04:51 Creatinine 1.4 mg/dL (0.7-1.2) H 02/08/24 04:51 GFR Calculation 53.2 mL/min (90-130) L 02/08/24 04:51 Glucose 233 mg/dL (65-115) H 02/08/24 04:51 POC Glucose 273 mg/dL (70-110) H 02/09/24 06:23 Estimat Average Glucose 240 02/03/24 13:15 Hemoglobin A1c 10.0 % (4.0-6.0) H 02/03/24 13:15 Calculated Osmolality 296 mOsm/kg (285-295) H 02/08/24 04:51 Lactic Acid 1.2 mmol/L (0.5-2.2) 02/03/24 13:15 Calcium 7.5 mg/dL (8.5-10.5) L 02/08/24 04:51 Phosphorus 3.2 mg/dL (2.5-4.5) 02/03/24 13:15 Magnesium 2.2 mg/dL (1.7-2.3) 02/06/24 04:22 Iron 14 ug/dL (59-158) L 02/04/24 05:23 TIBC 130 mcg/dl 02/04/24 05:23 % Saturation 10.7 % (20-50) L 02/04/24 05:23 Unsat Iron Binding 116 ug/dL (112-347) 02/04/24 05:23 Ferritin 243 ng/mL (30-400) 02/04/24 05:23 Total Bilirubin 0.2 mg/dL (0.15-1.2) 02/06/24 04:22 AST 14 U/L (0-40) 02/06/24 04:22 ALT 8 U/L (0-41) 02/06/24 04:22 Alkaline Phosphatase 259 U/L (40-130) H 02/06/24 04:22 C-Reactive Protein 113.2 mg/L (0.0-4.9) H 02/05/24 11:18 NT-Pro-B Natriuret Pep 1883 pg/mL (0-125) H 02/06/24 14:46 Total Protein 6.5 g/dL (6.6-8.7) L 02/06/24 04:22 Albumin 1.9 g/dL (3.5-5.2) L 02/06/24 04:22 Globulin 4.6 g/dL (1.3-4.6) 02/06/24 04:22 Vitamin B12 1773 pg/mL (232-1245) H 02/04/24 05:23 Folate 7.1 ng/mL (4.5-32.2) 02/04/24 05:23 TSH 1.06 uIU/mL (0.27-4.20) 02/04/24 05:23 Random Cortisol 9.67 ug/dL (2.47-19.5) 02/04/24 05:23 Urine Color Yellow (Yellow) 02/04/24 03:02 Urine Appearance Cloudy (CLEAR) A 02/04/24 03:02 Urine pH 5.0 (5-7) 02/04/24 03:02 Ur Specific [place] 1.017 (1.005-1.030) 02/04/24 03:02 Urine Protein 3+ (Negative) A 02/04/24 03:02 Urine Glucose (UA) 1+ (Normal) H 02/04/24 03:02 Urine Ketones Negative (Negative) 02/04/24 03:02 Urine Blood 2+ (Negative) A 02/04/24 03:02 Urine Nitrate Negative (Negative) 02/04/24 03:02 Urine Bilirubin Negative (Negative) 02/04/24 03:02 Urine Urobilinogen 1.0 mg/dL (Negative) 02/04/24 03:02 Ur Leukocyte Esterase Negative (Negative) 02/04/24 03:02 Urine RBC 3-5 /hpf (0-2) 02/04/24 03:02 Urine WBC 6-10 /hpf (0-5) 02/04/24 03:02 Ur Squamous Epith Cells 11-20 /hpf (0-5) 02/04/24 03:02 Amorphous Sediment Not Reportable 02/04/24 03:02 Urine Bacteria None seen /hpf (NONE) 02/04/24 03:02 Hyaline Casts 180.00 /lpf 02/04/24 03:02 U Random Total Protein 252 mg/dL 02/04/24 03:02 Urine Creatinine 82 mg/dL (39-259) 02/04/24 03:02 Vancomycin Trough 17.7 ug/mL (10-15) H 02/08/24 00:16 SARS-CoV-2 Ag (Rapid) negative (Negative) 02/09/24 08:33 Blood Type A Positive 02/03/24 14:02 Rho(D) Type Rh positive 02/03/24 14:02 Antibody Screen Negative 02/03/24 14:02 Crossmatch See Detail 02/03/24 14:02 Vitals Last Vital Signs Temp 98.7 F 02/09/24 08:00 Pulse 88 02/09/24 08:00 Resp 18 02/09/24 08:00 BP 187/98 02/09/24 08:00 Pulse Ox 97 02/09/24 08:00 O2 Del Method Room Air 02/09/24 04:00 O2 Flow Rate 8 02/03/24 16:53 Discharge Plan Discharge Patient Disposition: Xfer SNF Condition: Stable Prescriptions: New isosorbide mononitrate 30 mg Tablet Extended Release 24 Hr 30 mg PO DAILY Qty: 30 3RF hydralazine 25 mg Tablet 50 mg PO TID Qty: 90 3RF doxycycline monohydrate 100 mg Tablet 100 mg PO BID Qty: 20 0RF sodium bicarbonate 650 mg Tablet 650 mg PO QAM Qty: 30 0RF amoxicillin-pot clavulanate 875-125 mg Tablet 1 tab PO BID Qty: 20 0RF metoprolol tartrate 25 mg Tablet 50 mg PO BID@0900,2100 Qty: 60 3RF bumetanide 1 mg tablet 1 mg PO DAILY Qty: 30 4RF potassium chloride 10 mEq tablet extended release 10 meq PO DAILY Qty: 30 3RF Rx Instructions: with bumex only Januvia 25 mg tablet 25 mg PO DAILY Qty: 30 5RF Lantus Solostar U-100 Insulin 100 unit/mL (3 mL) insulin pen 20 unit SUBCUT QPM Qty: 15 4RF Humalog KwikPen Insulin 100 unit/mL insulin pen See Rx Instructions .ROUTE .COMPLEX Qty: 15 3RF Rx Instructions: med intensity SS escitalopram oxalate 10 mg tablet 10 mg PO DAILY Qty: 30 0RF Discharge Orders: Discharge Order (Routine); Ordered 02/09/24 Ordered By: Venus Estrada Referrals: Laureano French DO [Physician] - 02/24/24 9:15 am (We have notified your physician's clinic of the need for a follow-up appointment to be scheduled. If you have not heard from them within the next 2 business days, please call them directly. ) Andre Bryan DPM [Physician] - (We have notified your physician's clinic of the need for a follow-up appointment to be scheduled. If you have not heard from them within the next 2 business days, please call them directly. ) Discharge Diet: Diabetic Discharge Activity: Limit activity as instructed Patient Instructions: Bumetanide (By mouth) (Bumex), Amoxicillin/Clavulanate Potassium (By mouth), Below the Knee Amputation (GEN), CHF Stoplight Activity Restrictions/Additional Instructions: 141-181 2 unit/SQ 181-220 mg/dl 4 units/SQ 221-260 mg/dl 6 units/SQ 261-300 mg/dl 8 units/SQ 301-350 mg/dl 10 units/SQ 351-400 mg/dl 12 units/SQ Max Unit 15 U Cover R BKA incision with a dry dressing. Discharge Attestations Time Spent in Discharge Care*: greater than 30 min Quality Metrics Clinical Quality Measures [ No reported AMI, CVA or VTE this stay] Coding Level of Care Code Acute Code for Chg Fwd Diagnoses Medical non-compliance Z91.199 Elevated blood pressure reading R03.0 New onset of congestive heart failure I50.9 Acute kidney injury N17.9 Anemia D64.9 Gas gangrene A48.0 Left hallux osteomyelitis M86.9 Gangrene of right foot I96 Sepsis A41.9
[2024-02-09 10:45] LABS: Glucose Point of Care 311 mg/dL (70-110)
--- NOTE | 2024-02-09 11:19 | PC.NURSE ---
Report called to Magali at [facility].
--- NOTE | 2024-02-09 12:55 | PC.NURSE ---
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 Family at bedside. Family taking all pt belongings with them. State they will meet pt at halfway with his belongings.
== END 2024-02-09 13:02 | disposition skilled nursing facility (03) | DRG 853 ==
LOC: ER 14:34 → OR 14:51 → MEDSURG 16:18
PROVIDERS: Family Medicine; Internal Medicine; Podiatrist Foot & Ankle Surgery; Admitting Provider Surgery; Emergency Provider Emergency Medicine; Visit Provider Internal Medicine
PROC: 0Y6H0Z3 Detachment at Right Lower Leg, Low, Open Approach (ICD-10-PCS; CPT 27880; principal; 2024-02-03 15:00)
PROC: 0Y6H0Z1 Detachment at Right Lower Leg, High, Open Approach (ICD-10-PCS; CPT 27880; principal; 2024-02-07 11:50)
PROC: 0Y6Q0Z0 Detachment at Left 1st Toe, Complete, Open Approach (ICD-10-PCS; 2024-02-07 11:50)
DX: A41.9 Sepsis, unspecified organism (principal); A48.0 Gas gangrene; E11.52 Type 2 diabetes mellitus with diabetic peripheral angiopathy with gangrene; N17.9 Acute kidney failure, unspecified; M86.8X7 Other osteomyelitis, ankle and foot; E87.1 Hypo-osmolality and hyponatremia; D64.9 Anemia, unspecified; Z91.199 Patient's noncompliance with other medical treatment and regimen due to unspecified reason; I50.9 Heart failure, unspecified; Z91.148 Patient's other noncompliance with medication regimen for other reason; E11.22 Type 2 diabetes mellitus with diabetic chronic kidney disease; N18.9 Chronic kidney disease, unspecified; R03.0 Elevated blood-pressure reading, without diagnosis of hypertension
CPT/HCPCS: 36415; 36416; 36430; 51702; 73630; 76770; 80048; 80053; 80202; 81001; 82533; 82570; 82607; 82728; 82746; 82962; 83036; 83540; 83550; 83605; 83735; 83880; 84100; 84156; 84443; 85025; 85610; 85651; 85730; 86140; 86850; 86900; 86920; 87040; 87426; 88305; 88307; 88311; 93306; 96365; 96367; 96372; 99285; J0330; J1100; J1170; J1644; J1815; J1940; J2020; J2185; J2405; J2543; J2704; J2795; J3010; J3370; J3372; J3490; J7030; P9040

== ENCOUNTER → 2024-03-02 11:17 | Outpatient (BNVA) | payer MEDICARE, MEDICAID, SELFPAY | PROVIDERS: Visit Provider Podiatrist Foot & Ankle Surgery | DX: E11.21 Type 2 diabetes mellitus with diabetic nephropathy (principal); Z89.511 Acquired absence of right leg below knee; Z79.4 Long term (current) use of insulin; Z89.412 Acquired absence of left great toe | CPT/HCPCS: 99213 ==

== ENCOUNTER 2024-03-10 16:28 | Inpatient (IN) | payer MEDICARE, MEDICAID, SELFPAY ==
--- NOTE | 2024-03-10 16:34 | CTR_ITS ---
PROCEDURE INFORMATION: Exam: CT Abdomen And Pelvis Without Contrast Exam date and time: 03/10/2024 4:56 PM Age: 53 years old Clinical indication: Abdominal pain; Patient HX: PT arrives via EMS from [facility] [facility] with complaints of a fever and left sided flank pain. 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 PT has a history of UTI. PT also has a history of kidney stones. TECHNIQUE: Imaging protocol: Computed tomography of the abdomen and pelvis without contrast. Radiation optimization: All CT scans at this facility use at least one of these dose optimization techniques: automated exposure control; mA and/or kV adjustment per patient size (includes targeted exams where dose is matched to clinical indication); or iterative reconstruction. COMPARISON: US renal BI* [id number] 02/04/2024 7:41 AM RADIATION DOSE METRICS: Total DLP (mGy-cm): 1231.76 FINDINGS: Lungs: The visualized portions of the lungs are unremarkable. Heart: Low-attenuation of the cardiac chambers in relation to the interventricular septum, suggestive of anemia. Liver: The liver is unremarkable. Gallbladder and biliary ducts: The gallbladder is unremarkable. No biliary dilation. Pancreas: The pancreas is unremarkable. Spleen: The spleen is unremarkable. Adrenal glands: The adrenal glands are unremarkable. Kidneys and ureters: Punctate right-sided nonobstructive renal stones. No hydronephrosis. 1.7 cm hypodensity within the left kidney, previously characterized as a cyst on a prior ultrasound. Bilateral nonspecific perinephric stranding. Stomach and bowel: There is no bowel wall thickening. No bowel obstruction. Appendix: A normal appendix is identified. Intraperitoneal space: No significant peritoneal free fluid. No free peritoneal air. Vasculature: The vasculature demonstrates minimal atherosclerotic calcification. No aneurysm. Lymph nodes: Bilateral external iliac and inguinal lymphadenopathy, likely reactive. Urinary bladder: The bladder is significantly distended, with mild diffuse bladder wall thickening. There is associated perivesical stranding. Reproductive: Prostatomegaly, measuring 5.3 cm in transverse dimension. Bones/joints: The spine demonstrates mild degenerative changes at multiple levels. Soft tissues: Mild body wall edema. CT/CT kidney stone [id number] IMPRESSION: 1. The bladder is significantly distended, with mild diffuse bladder wall thickening and perivesical inflammatory changes, suspicious for cystitis and possibly related to chronic outlet obstruction and urinary retention in the setting of prostatomegaly. 2. Inguinal and external iliac lymphadenopathy, likely reactive. 3. Nonobstructive right-sided renal stones.
--- NOTE | 2024-03-10 16:37 | ED_ITS ---
Documented by User: Davonte Rosen DO 03/12/24 06:49 HPI - General Adult 2 General: Chief complaint: Fever Stated complaint: fever; left flank pain Time Seen by Provider: 03/10/24 16:33 History of Present Illness: 53-year-old male presents to the emergen cy room via EMS from local [facility] with complaints of left-sided flank pain fever. Patient previously has had lower extremity amputations he has had a right below the knee amputation and the left great toe removal. He has a history of renal stones as well as recurrent UTIs in the past. He is awake alert and oriented able to give history. He generally complains of not feeling well and having myalgias throughout and specifically the left flank pain. Associated symptoms: Reports nausea; Deny chest pain, dyspnea, rash or vomiting Related Data Home Medications Medication Instructions Recorded Confirmed acetaminophen 650 mg tablet 650 mg PO Q6H PRN Pain, Moderate 03/10/24 03/10/24 bisacodyl 10 mg rectal suppository 10 mg AR DAILY PRN Constipation 03/10/24 03/10/24 (Dulcolax (bisacodyl)) magnesium citrate 296 ml PO DAILY PRN Constipation 03/10/24 03/11/24 magnesium hydroxide 400 mg/5 mL 30 ml PO DAILY PRN Constipation 03/10/24 03/11/24 oral suspension (Milk of Magnesia) polyethylene glycol 3350 17 gram 17 g PO DAILY PRN Constipation 03/10/24 03/11/24 oral powder packet (Miralax) sodium phosphates 19 gram-7 118 ml AR DAILY PRN Constipation 03/10/24 03/11/24 gram/118 mL enema (Fleet Enema) Previous Rx's Medication Instructions Recorded bumetanide 1 mg tablet 1 mg PO DAILY #30 tabs 02/09/24 escitalopram oxalate 10 mg tablet 10 mg PO DAILY #30 tabs 02/09/24 hydralazine 25 mg tablet 50 mg (2 x 25 mg) PO TID #90 tabs 02/09/24 insulin glargine 100 unit/mL (3 20 unit (0.2 mL) SUBCUT QPM #15 mL 02/09/24 mL) subcutaneous pen (Lantus Solostar U-100 Insulin) insulin lispro 100 unit/mL See Rx Instructions .Route 09/12/24 subcutaneous pen (Humalog KwikPen .COMPLEX #15 mL (U-100) Insulin) isosorbide mononitrate 30 mg 30 mg PO DAILY #30 tabs 02/09/24 tablet,extended release 24 hr metoprolol tartrate 25 mg tablet 50 mg (2 x 25 mg) PO BID@0900,2100 02/09/24 #60 tabs potassium chloride 10 mEq 10 meq PO DAILY with bumex only 02/09/24 tablet,extended release #30 tabs sennosides 8.6 mg-docusate sodium 1 tab-cap PO DAILY #10 tabs 02/09/24 50 mg tablet ([place]-S) sitagliptin phosphate 25 mg tablet 25 mg PO DAILY #30 tabs 02/09/24 (Januvia) sodium bicarbonate 650 mg tablet 650 mg PO QAM #30 tabs 02/09/24 Allergies Allergy/AdvReac Type Severity Reaction Status Date / Time No Known Allergies Allergy Verified 03/02/24 11:50 Review of Systems 2 Const: Reports: fever(s); Denies: chills Card: Denies: chest pain Resp: Denies: dyspnea GI: Reports: abdominal pain and nausea; Denies: vomiting, hematemesis or hematochezia : Reports: flank pain; Denies: dysuria, urinary frequency or urinary urgency Musc: Denies: neck pain or back pain Skin/Breast: Denies: rash PFSH ED 2 PFSH: Medical History CKD (chronic kidney disease) New onset of congestive heart failure Elevated blood pressure reading Hyponatremia Acute kidney injury Sepsis Anemia Renal failure Medical non-compliance 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 Diabetes mellitus Surgical History History of facial surgery Social History Smoking and tobacco/nicotine status: unknown if used tobacco/nicotine Alcohol intake: never Physical Exam 2 Const: GENERAL APPEARANCE: cooperative ORIENTATION/CONSCIOUSNESS: Yes awake HENMT: COMMON NORMALS: normocephalic, atraumatic and hearing grossly normal bilaterally HEAD & SCALP: normocephalic and atraumatic Resp: COMMON NORMALS: normal respiratory effort, No retractions, No use of accessory muscles and clear to auscultation bilaterally AUSCULTATION: clear to auscultation bilaterally Cardio: COMMON NORMALS: regular rate, regular rhythm and No murmurs present (Cardio) RATE: regular rate RHYTHM: regular rhythm GI: COMMON NORMALS: Soft to palpation and No hepatosplenomegaly present A USCULTATION: Yes normoactive bowel sounds PALPATION: Yes Soft to palpation, No Tenderness to palpation present (GI), No Guarding due to palpation present (GI) and Yes No hepatosplenomegaly present Extremity: COMMON NORMALS: normal to inspection, capillary refill normal, no clubbing, cyanosis or edema, no calf tenderness and no pedal edema Skin: COMMON NORMALS: no rashes or lesions noted GENERAL SKIN EXAM: no rashes or lesions noted Course 2 Vital Signs: Vital signs: Vital Signs Temperature 98.5 F 03/12/24 04:00 Pulse Rate 68 03/12/24 04:00 Respiratory Rate 17 03/12/24 04:00 Blood Pressure 105/62 03/12/24 04:00 Pulse Oximetry 97 03/12/24 04:00 Oxygen Delivery Me thod Room Air 03/12/24 04:00 MDM - General Adult Medical Decision Making Patient appears septic. Antibiotics initiated. Cultures done. CT pending. Care signed out to Dr. Vasquez at change of shift. See final notes for diagnosis and disposition. 53-year-old male checked out to me at shift change. 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 He presents with a fever. 100.8. Normotensive. White blood cell count is 16. Hemoglobin is 7.4 which is mildly decreased from last month. Creatinine is 1.4 which is baseline. Urinalysis shows significant urinary tract infection with greater than [address] scan confirms no stone obstruction, but there is evidence of urinary outlet obstruction. Prevoid bladder scan was completed showing 422 in the bladder. The patient voided, although difficult, and was able to expel all the urine in his bladder so Mclain catheter has not been placed at this time. Spoke with hospitalist regarding admission for UTI and sepsis. He agrees to admit. He has been given Zosyn here and fluid Lab Data 03/12/24 05:02 03/12/24 05:02 Radiology Impressions Abdomen/Pelvis CT 03/10/24 16:34 IMPRESSION: 1. The bladder is significantly distended, with mild diffuse bladder wall thickening and perivesical inflammatory changes, suspicious for cystitis and possibly related to chronic outlet obstruction and urinary retention in the setting of prostatomegaly. 2. Inguinal and external iliac lymphadenopathy, likely reactive. 3. Nonobstructive right-sided renal stones. Laboratory Results WBC 15.65 10^3/uL (3.29-11.43) H 03/10/24 17:14 RBC 2.88 10^6/uL (3.85-5.65) L 03/10/24 17:14 Hgb 7.40 g/dL (11.27-16.99) L 03/10/24 17:14 Hct 24.4 % (37-53) L 03/10/24 17:14 MCV 84.7 fl (82-101) 03/10/24 17:14 MCH 25.7 pg (27-33) L 03/10/24 17:14 MCHC 30.3 g/dL (30-55) 03/10/24 17:14 RDW 16.6 % (12.1-15.1) H 03/10/24 17:14 Plt Count 292 10^3/cmm (157-399) 03/10/24 17:14 MPV 9.2 fL (7.4-10.4) 03/10/24 17:14 Neut % (Auto) 86.5 % 03/10/24 17:14 Lymph % (Auto) 4.4 % 03/10/24 17:14 Wilson % (Auto) 7.9 % 03/10/24 17:14 Eos % (Auto) 0.0 % 03/10/24 17:14 Baso % (Auto) 0.2 % 03/10/24 17:14 Neut # (Auto) 13.53 10^3/uL (1.8-7.7) H 03/10/24 17:14 Lymph # (Auto) 0.7 10^3/uL (0.8-4.8) L 03/10/24 17:14 Wilson # (Auto) 1.2 10^3/uL (0.2-0.9) H 03/10/24 17:14 Eos # (Auto) 0.0 10^3/uL (0.0-0.8) 03/10/24 17:14 Baso # (Auto) 0.0 10^3/uL (0.0-0.1) 03/10/24 17:14 Nucleated RBC % (auto) 0 % 03/10/24 17:14 Nucleated RBCs # 0.0 /100WBC 03/10/24 17:14 Sodium 135 mmol/L (136-145) L 03/10/24 17:14 Potassium 4.3 mmol/L (3.5-5.1) 03/10/24 17:14 Chloride 102 mmol/L (98-107) 03/10/24 17:14 Carbon Dioxide 22 mmol/L (22-29) 03/10/24 17:14 Anion Gap 15.3 (5-19) 03/10/24 17:14 BUN 25 mg/dL (6-20) H 03/10/24 17:14 Creatinine 1.4 mg/dL (0.7-1.2) H 03/10/24 17:14 GFR Calculation 53.2 mL/min (90-130) L 03/10/24 17:14 Glucose 189 mg/dL (65-115) H 03/10/24 17:14 Calculated Osmolality 289 mOsm/kg (285-295) 03/10/24 17:14 Lactic Acid 1.6 mmol/L (0.5-2.2) 03/10/24 17:14 Calcium 8.4 mg/dL (8.5-10.5) L 03/10/24 17:14 Iron 11 ug/dL (59-158) L 03/10/24 17:14 TIBC 224 mcg/dl 03/10/24 17:14 % Saturation 4.9 % (20-50) L 03/10/24 17:14 Unsat Iron Binding 213 ug/dL (112-347) 03/10/24 17:14 Ferritin 155 ng/mL (30-400) 03/10/24 17:14 Total Bilirubin 0.4 mg/dL (0.15-1.2) 03/10/24 17:14 AST 12 U/L (0-40) 03/10/24 17:14 ALT 9 U/L (0-41) 03/10/24 17:14 Alkaline Phosphatase 158 U/L (40-130) H 03/10/24 17:14 Total Protein 7.9 g/dL (6.6-8.7) 03/10/24 17:14 Albumin 2.8 g/dL (3.5-5.2) L 03/10/24 17:14 Globulin 5.1 g/dL (1.3-4.6) H 03/10/24 17:14 Urine Color Yellow (Yellow) 03/10/24 18:33 Urine Appearance Turbid (CLEAR) A 03/10/24 18:33 Urine pH 8.0 (5-7) A 03/10/24 18:33 Ur Specific [place] 1.014 (1.005-1.030) 03/10/24 18:33 Urine Protein 3+ (Negative) A 03/10/24 18:33 Urine Glucose (UA) Negative (Normal) 03/10/24 18:33 Urine Ketones Negative (Negative) 03/10/24 18:33 Urine Blood 1+ (Negative) A 03/10/24 18:33 Urine Nitrate Positive (Negative) A 03/10/24 18:33 Urine Bilirubin Negative (Negative) 03/10/24 18:33 Urine Urobilinogen 1.0 mg/dL (Negative) 03/10/24 18:33 Ur Leukocyte Esterase 3+ (Negative) A 03/10/24 18:33 Urine RBC 3-5 /hpf (0-2) 03/10/24 18:33 Urine WBC >100 /hpf (0-5) H 03/10/24 18:33 Ur Squamous Epith Cells 0-5 /hpf (0-5) 03/10/24 18:33 Amorphous Sediment Not Reportable 03/10/24 18:33 Urine Bacteria Exceeds /hpf (NONE) 03/10/24 18:33 Hyaline Casts 2.05 /lpf 03/10/24 18:33 Discharge Plan Discharge Patient Disposition: Admitted As Inpatient Admit Provider: Graham Swain Clinical Impression: Sepsis, Acute UTI Condition: Fair Coding Level of Care Code ED Hospital Sales Representative for [facility]il[facility] Fwd Documented by User: Umang Vasquez, 03/10/24 22:50 HPI - General Adult 2 General: Chief complaint: Fever Stated complaint: fever; left flank pain Time Seen by Provider: 03/10/24 16:33 Related Data Home Medications Medication Instructions Recorded Confirmed acetaminophen 650 mg tablet 650 mg PO Q6H PRN Pain, Moderate 03/10/24 03/10/24 bisacodyl 10 mg rectal suppository 10 mg AR DAILY PRN Constipation 03/10/24 03/10/24 (Dulcolax (bisacodyl)) magnesium citrate 296 ml PO DAILY PRN Constipation 03/10/24 03/11/24 magnesium hydroxide 400 mg/5 mL 30 ml PO DAILY PRN Constipation 03/10/24 03/11/24 oral suspension (Milk of Magnesia) polyethylene glycol 3350 17 gram 17 g PO DAILY PRN Constipation 03/10/24 03/11/24 oral powder packet (Miralax) sodium phosphates 19 gram-7 118 ml AR DAILY PRN Constipation 03/10/24 03/11/24 gram/118 mL enema (Fleet Enema) Previous Rx's Medication Instructions Recorded bumetanide 1 mg tablet 1 mg PO DAILY #30 tabs 02/09/24 escitalopram oxalate 10 mg tablet 10 mg PO DAILY #30 tabs 02/09/24 hydralazine 25 mg tablet 50 mg (2 x 25 mg) PO TID #90 tabs 02/09/24 insulin glargine 100 unit/mL (3 20 unit (0.2 mL) SUBCUT QPM #15 mL 02/09/24 mL) subcutaneous pen (Lantus Solostar U-100 Insulin) insulin lispro 100 unit/mL See Rx Instructions .Route 02/09/24 subcutaneous pen (Humalog KwikPen .COMPLEX #15 mL (U-100) Insulin) isosorbide mononitrate 30 mg 30 mg PO DAILY #30 tabs 02/09/24 tablet,extended release 24 hr metoprolol tartrate 25 mg tablet 50 mg (2 x 25 mg) PO BID@0900,2100 02/09/24 #60 tabs potassium chloride 10 mEq 10 meq PO DAILY with bumex only 02/09/24 tablet,extended release #30 tabs sennosides 8.6 mg-docusate sodium 1 tab-cap PO DAILY #10 tabs 02/09/24 50 mg tablet (Senexon-S) sitagliptin phosphate 25 mg tablet 25 mg PO DAILY #30 tabs 02/09/24 (Januvia) sodium bicarbonate 650 mg tablet 650 mg PO QAM #30 tabs 02/09/24 Allergies Allergy/AdvReac Type Severity Reaction Status Date / Time No Known Allergies Allergy Verified 03/02/24 11:50 PFSH ED 2 PFSH: Medical History CKD (chronic kidney disease) New onset of congestive heart failure Elevated blood pressure reading Hyponatremia Acute kidney injury Sepsis Anemia Renal failure Medical non-compliance 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 He presents with a fever. 100.8. Normotensive. White blood cell count is 16. Hemoglobin is 7.4 which is mildly decreased from last month. Creatinine is 1.4 which is baseline. Urinalysis shows significant urinary tract infection with greater than [address] scan confirms no stone obstruction, but there is evidence of urinary outlet obstruction. Prevoid bladder scan was completed showing 422 in the bladder. The patient voided, although difficult, and was able to expel all the urine in his bladder so Mclain catheter has not been placed at this time. Spoke with hospitalist regarding admission for UTI and sepsis. He agrees to admit. He has been given Zosyn here and fluid Lab Data 03/12/24 05:02 03/12/24 05:02 Radiology Impressions Abdomen/Pelvis CT 03/10/24 16:34 IMPRESSION: 1. The bladder is significantly distended, with mild diffuse bladder wall thickening and perivesical inflammatory changes, suspicious for cystitis and possibly related to chronic outlet obstruction and urinary retention in the setting of prostatomegaly. 2. Inguinal and external iliac lymphadenopathy, likely reactive. 3. Nonobstructive right-sided renal stones. Laboratory Results WBC 15.65 10^3/uL (3.29-11.43) H 03/10/24 17:14 RBC 2.88 10^6/uL (3.85-5.65) L 03/10/24 17:14 Hgb 7.40 g/dL (11.27-16.99) L 03/10/24 17:14 Hct 24.4 % (37-53) L 03/10/24 17:14 MCV 84.7 fl (82-101) 03/10/24 17:14 MCH 25.7 pg (27-33) L 03/10/24 17:14 MCHC 30.3 g/dL (30-55) 03/10/24 17:14 RDW 16.6 % (12.1-15.1) H 03/10/24 17:14 Plt Count 292 10^3/cmm (157-399) 03/10/24 17:14 MPV 9.2 fL (7.4-10.4) 03/10/24 17:14 Neut % (Auto) 86.5 % 03/10/24 17:14 Lymph % (Auto) 4.4 % 03/10/24 17:14 Wilson % (Auto) 7.9 % 03/10/24 17:14 Eos % (Auto) 0.0 % 03/10/24 17:14 Baso % (Auto) 0.2 % 03/10/24 17:14 Neut # (Auto) 13.53 10^3/uL (1.8-7.7) H 03/10/24 17:14 Lymph # (Auto) 0.7 10^3/uL (0.8-4.8) L 03/10/24 17:14 Wilson # (Auto) 1.2 10^3/uL (0.2-0.9) H 03/10/24 17:14 Eos # (Auto) 0.0 10^3/uL (0.0-0.8) 03/10/24 17:14 Baso # (Auto) 0.0 10^3/uL (0.0-0.1) 03/10/24 17:14 Nucleated RBC % (auto) 0 % 03/10/24 17:14 Nucleated RBCs # 0.0 /100WBC 03/10/24 17:14 Sodium 135 mmol/L (136-145) L 03/10/24 17:14 Potassium 4.3 mmol/L (3.5-5.1) 03/10/24 17:14 Chloride 102 mmol/L (98-107) 03/10/24 17:14 Carbon Dioxide 22 mmol/L (22-29) 03/10/24 17:14 Anion Gap 15.3 (5-19) 03/10/24 17:14 BUN 25 mg/dL (6-20) H 03/10/24 17:14 Creatinine 1.4 mg/dL (0.7-1.2) H 03/10/24 17:14 GFR Calculation 53.2 mL/min (90-130) L 03/10/24 17:14 Glucose 189 mg/dL (65-115) H 03/10/24 17:14 Calculated Osmolality 289 mOsm/kg (285-295) 03/10/24 17:14 Lactic Acid 1.6 mmol/L (0.5-2.2) 03/10/24 17:14 Calcium 8.4 mg/dL (8.5-10.5) L 03/10/24 17:14 Iron 11 ug/dL (59-158) L 03/10/24 17:14 TIBC 224 mcg/dl 03/10/24 17:14 % Saturation 4.9 % (20-50) L 03/10/24 17:14 Unsat Iron Binding 213 ug/dL (112-347) 03/10/24 17:14 Ferritin 155 ng/mL (30-400) 03/10/24 17:14 Total Bilirubin 0.4 mg/dL (0.15-1.2) 03/10/24 17:14 AST 12 U/L (0-40) 03/10/24 17:14 ALT 9 U/L (0-41) 03/10/24 17:14 Alkaline Phosphatase 158 U/L (40-130) H 03/10/24 17:14 Total Protein 7.9 g/dL (6.6-8.7) 03/10/24 17:14 Albumin 2.8 g/dL (3.5-5.2) L 03/10/24 17:14 Globulin 5.1 g/dL (1.3-4.6) H 03/10/24 17:14 Urine Color Yellow (Yellow) 03/10/24 18:33 Urine Appearance Turbid (CLEAR) A 03/10/24 18:33 Urine pH 8.0 (5-7) A 03/10/24 18:33 Ur Specific [place] 1.014 (1.005-1.030) 03/10/24 18:33 Urine Protein 3+ (Negative) A 03/10/24 18:33 Urine Glucose (UA) Negative (Normal) 03/10/24 18:33 Urine Ketones Negative (Negative) 03/10/24 18:33 Urine Blood 1+ (Negative) A 03/10/24 18:33 Urine Nitrate Positive (Negative) A 03/10/24 18:33 Urine Bilirubin Negative (Negative) 03/10/24 18:33 Urine Urobilinogen 1.0 mg/dL (Negative) 03/10/24 18:33 Ur Leukocyte Esterase 3+ (Negative) A 03/10/24 18:33 Urine RBC 3-5 /hpf (0-2) 03/10/24 18:33 Urine WBC >100 /hpf (0-5) H 03/10/24 18:33 Ur Squamous Epith Cells 0-5 /hpf (0-5) 03/10/24 18:33 Amorphous Sediment Not Reportable 03/10/24 18:33 Urine Bacteria Exceeds /hpf (NONE) 03/10/24 18:33 Hyaline Casts 2.05 /lpf 03/10/24 18:33 All radiology interpretation(s) finalized by discharge Discharge Plan Discharge Patient Disposition: Admitted As Inpatient Admit Provider: Graham Swain Clinical Impression: Sepsis, Acute UTI Condition: Fair Coding Level of Care Code ED Hospital Sales Representative for Radha Doran
[2024-03-10 16:40] VITALS: BP 152/74; PULSE 99; RESP 17; TEMP 38.2; O2SAT 96
[2024-03-10 17:21] LABS: Basophils % 0.2 %; Hematocrit 24.4 % (37-53); Lymphocytes # 0.7 10^3/uL (0.8-4.8); Lymphocytes % 4.4 %; Mean Corpuscular HGB Conc 30.3 g/dL (30-55); Mean Corpuscular Hemoglobin 25.7 pg (27-33); Mean Corpuscular Volume 84.7 fl (82-101); Mean Platelet Volume 9.2 fL (7.4-10.4); Monocytes # 1.2 10^3/uL (0.2-0.9); Monocytes % 7.9 %; Neutrophils # 13.53 10^3/uL (1.8-7.7); Neutrophils % 86.5 %; Nucleated Red Blood Cells % 0 %; Platelet Count 292 10^3/cmm (157-399); Red Blood Count 2.88 10^6/uL (3.85-5.65); Red Cell Distribution Width 16.6 % (12.1-15.1); White Blood Count 15.65 10^3/uL (3.29-11.43)
[2024-03-10 17:41] LABS: Alanine Aminotransferase 9 U/L (0-41); Albumin Level 2.8 g/dL (3.5-5.2); Alkaline Phosphatase 158 U/L (40-130); Anion Gap 15.3 (5-19); Aspartate Amino Transferase 12 U/L (0-40); Blood Urea Nitrogen 25 mg/dL (6-20); Calcium 8.4 mg/dL (8.5-10.5); Carbon Dioxide 22 mmol/L (22-29); Chloride 102 mmol/L (98-107); Creatinine Clr Calc Pharmacy 78.7879; Globulin 5.1 g/dL (1.3-4.6); Glomerular Filtration Rate 53.2 mL/min (90-130); Glucose 189 mg/dL (65-115); Osmolality Calculated 289 mOsm/kg (285-295); Potassium 4.3 mmol/L (3.5-5.1); Sodium 135 mmol/L (136-145); Total Bilirubin 0.4 mg/dL (0.15-1.2); Total Protein 7.9 g/dL (6.6-8.7)
[2024-03-10 18:44] LABS: Bilirubin Urine Negative (Negative); Blood Urine 1+ (Negative); Glucose Urine UA Negative (Normal); Ketones Urine Negative (Negative); Leukocyte Esterase Urine 3+ (Negative); Nitrate Urine Positive (Negative); Protein Urine 3+ (Negative); Specific Gravity, Urine 1.014 (1.005-1.030); Urine Appearance Turbid (CLEAR); Urine Color Yellow (Yellow)
[2024-03-10 18:47] LABS: Lactic Sepsis W/Reflex 1.6 mmol/L (0.5-2.2)
[2024-03-10 18:49] LABS: Add Urine Microscopic? YES; Bacteria Urine EXCEEDS /hpf; Hyaline Casts Urine 2.05 /lpf; Squamous Epithelial Cell Urine 0-5 /hpf (0-5); WBC Urine >100 /hpf (0-5)
[2024-03-10 18:53] LABS: Add Urine Culture? Yes
[2024-03-10] MEDS: piperacillin-tazobactam 3.375 GM in sodium chloride 0.9% (plus) 50 ML IV (19:18)
[2024-03-10] MEDS: sodium chloride 0.9% 1,000 ML 999 ML IV (19:18)
--- NOTE | 2024-03-10 20:29 | PC.NURSE ---
pre-void amount 422. pt then was able to empty bladder with great difficulty.
--- NOTE | 2024-03-10 22:48 | P.HP_ITS ---
Providers/Chief Complaint 2 Admitting Physician: Graham Swain Chief Complaint: fever; left flank pain History of Present Illness 53-year-old gentleman with history of brittle diabetes, prior right right lower leg amputation, history of CKD, CHF, anemia, other medical problems was brought in for evaluation to ER due to having fever today, left flank pain, in ER had to strain to produce urine although did urinate on his own. UA suggestive of UTI, positive nitrate, more than 100 WBC, copious bacteria. Bladder distended on CT abdomen pelvis, suspicious for cystitis with diffuse wall thickening, chronic outlet obstruction and urinary retention with prostatomegaly. Nonobstructive nephrolithiasis on the right. Inguinal external iliac lymphadenopathy suspected reactive. Review of Systems 2 Const: Reports: fever(s) and malaise Eyes: Denies: change in vision ENMT: Denies: throat pain, oral sores or ear or mastoid pain Card: Denies: chest pain, edema, pre-syncope or dyspnea on exertion Resp: Denies: dyspnea, productive cough, change in phlegm color or hemoptysis GI: Denies: abdominal pain, nausea, vomiting, diarrhea, constipation, hematochezia or melena : Reports: flank pain and difficulty urinating; Denies: urinary frequency or hematuria Skin/Breast: Denies: rash or new lesions Neuro: Denies: headache(s) Medications/Allergies Home Medications Medication Instructions Recorded Confirmed Last Taken Type bumetanide 1 mg tablet 1 mg PO DAILY #30 tabs 02/09/24 03/02/24 Unknown Rx escitalopram oxalate 10 mg tablet 10 mg PO DAILY #30 tabs 02/09/24 03/02/24 Unknown Rx hydralazine 25 mg tablet 50 mg (2 x 25 mg) PO TID #90 tabs 02/09/24 03/02/24 Unknown Rx insulin glargine 100 unit/mL (3 20 unit (0.2 mL) SUBCUT QPM #15 mL 02/09/24 03/02/24 Unknown Rx mL) subcutaneous pen (Lantus Solostar U-100 Insulin) insulin lispro 100 unit/mL See Rx Instructions .Route 02/09/24 03/02/24 Unknown Rx subcutaneous pen (Humalog KwikPen .COMPLEX #15 mL (U-100) Insulin) isosorbide mononitrate 30 mg 30 mg PO DAILY #30 tabs 02/09/24 03/02/24 Unknown Rx tablet,extended release 24 hr metoprolol tartrate 25 mg tablet 50 mg (2 x 25 mg) PO BID@0900,2100 02/09/24 03/02/24 Unknown Rx #60 tabs oxycodone-acetaminophen 5 mg-325 1 tab PO BID PRN pain #10 tabs 02/09/24 03/02/24 Unknown Rx mg tablet potassium chloride 10 mEq 10 meq PO DAILY with bumex only 02/09/24 03/02/24 Unknown Rx tablet,extended release #30 tabs sennosides 8.6 mg-docusate sodium 1 tab-cap PO DAILY #10 tabs 02/09/24 03/02/24 Unknown Rx 50 mg tablet (Senexon-S) sitagliptin phosphate 25 mg tablet 25 mg PO DAILY #30 tabs 02/09/24 03/02/24 Unknown Rx (Januvia) sodium bicarbonate 650 mg tablet 650 mg PO QAM #30 tabs 02/09/24 03/02/24 Unknown Rx Allergies Allergy/AdvReac Type Severity Reaction Status Date / Time No Known Allergies Allergy Verified 03/02/24 11:50 PFSH Acute 2 PFSH: Medical History (Updated 03/10/24 @ 22:55 by Graham Swain MD) CKD (chronic kidney disease) New onset of congestive heart failure Elevated blood pressure reading Hyponatremia Acute kidney injury Sepsis Anemia Renal failure Medical non-compliance 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 Diabetes mellitus Surgical History History of facial surgery Social History Smoking and tobacco/nicotine status: unknown if used tobacco/nicotine Alcohol intake: never Vitals/I&O/Wt Last Vital Signs Temp 100.8 F H 03/10/24 16:40 Pulse 99 03/10/24 16:40 Resp 17 03/10/24 16:40 BP 152/74 03/10/24 16:40 Pulse Ox 96 03/10/24 16:40 O2 Del Method Room Air 03/10/24 16:40 1003/10/24 03/10/24 06:59 14:59 22:59 Intake Total 1050 / 1050 Balance 1050 / 1050 Weight last 48 hrs Weight 116.12 kg Physical Exam 2 Const: COMMON NORMALS: patient oriented x3 and alert GENERAL APPEARANCE: c ooperative NUTRITIONAL APPEARANCE: obese ORIENTATION/CONSCIOUSNESS: Yes awake HENMT: COMMON NORMALS: oropharynx normal Neck/C-Spine: COMMON NORMALS: no JVD Resp: COMMON NORMALS: normal respiratory effort and clear to auscultation bilaterally AUSCULTATION: clear to auscultation bilaterally Cardio: COMMON NORMALS: no JVD, regular rhythm, S1 normal heart sound present, S2 normal heart sound present and No murmurs present (Cardio) RHYTHM: regular rhythm HEART SOUNDS: S1 normal heart sound present and S2 normal heart sound present GI: COMMON NORMALS: Normal to inspection, nondistended, normoactive bowel sounds present, Soft to palpation and non-tender PALPATION: Yes Soft to palpation Extremity: COMMON NORMALS: no joint enlargement and no pedal edema N ARRATIVE EXTREMITY EXAM: R BKA Neuro: COMMON NORMALS: patient oriented x3 and moves all extremities S ENSORIUM/ORIENTATION: Yes alert Skin: COMMON NORMALS: no rashes or lesions noted GENERAL SKIN EXAM: no rashes or lesions noted Sepsis: Is patient septic: Yes Focused sepsis exam: He is awake alert, with good perfusion, good capillary refill. No mottling or cyanosis. Date exam was performed: 03/10/24 Time exam was performed: 20:30 Data 03/10/24 17:14 03/10/24 17:14 Micro: Microbiology 03/10/24 19:40 Blood Culture - Preliminary Blood SPECIMEN COLLECTED 03/10/24 19:38 Blood Culture - Preliminary Blood SPECIMEN COLLECTED A&P Assessment and plan (1) Acute UTI: Complicated UTI with suspected ascending pyelonephritis with left flank pain, with fever, leukocytosis 15.65, tachycardia 99, UA suggestive UTI with more than 100 WBC, nitrate positive, copious bacteria, turbid. He has been having malaise, generalized weakness, flank pain. At risk of progression to severe sepsis, septic shock. Treat complicated UTI with suspected ascending UTI early pyelonephritis likely secondary to bladder fluid obstruction noted on CT. Reviewed vitals, CBC, CMP, UA, CT abdomen pelvis, ER provider note. Discussed with ER provider. Initial bladder scan with 422 in the bladder, but was able to void though with difficulty. Start Flomax. Will request additional bladder scans, in case of further signs of retention Place Mclain catheter. Continue Zosyn, monitor for risk of agranulocytosis, SJS, C. difficile. Follow- up blood culture, urine culture. (2) Sepsis: Possible sepsis with fever 100.8 Fahrenheit, tachycardia 99, leukocytosis 15.65. Complicated suspected ascending UTI with left flank pain, urinalysis suggestive of urine infection. Reviewed cultures, no prior known resistant infection in the past. Bladder obstruction as below but does empty bladder so far. Monitor with bladder scan. Place Mclain in case of signs of retention. Start Flomax. For sepsis without endorgan dysfunction currently, complicated UTI continue Zosyn. Lactic acid is 1.6. Blood cultures collected. Follow-up. Follow-up urine culture. Monitor vitals. (3) Acute on chronic anemia: Normocytic anemia noted on review of hemoglobin 7.4, MCV 84.7 low normal. Check Hemoccult. Will Sieben IV PPI for now. Will avoid anticoagulation for now. Avoid NSAIDs. Will check iron studies. Monitor for possibility of GI bleeding. Reassess blood counts. (4) Bladder outlet obstruction: Suspected secondary to prostatomegaly. Possibly contributing to UTI. Had to strain to void in ER. Start Flomax. Will add bladder scans every 6 hours, monitor for retention. (5) CKD (chronic kidney disease): Creatinine appears to be at baseline at 1.4 currently. Will need follow-up for additional assessment and management by PCP. Plan Right BKA wound: Wound care. Monitor for S/S of infection. Subacute osteomyelitis left ankle and foot: Continue wound care, monitor for S/S of infection, and follow-up with PCP. Prostatomegaly: Follow-up with primary provider for further assessment and management. Starting Flomax. Brittle DM: Sliding scale insulin. Consistent carb diet. Lantus. Chronic CHF: Currently not in exacerbation. Monitor. Continue Bumex daily. HTN: Continue hydralazine, Imdur Attestations 2 Medical Necessity Statement*: Admission of over 2 midnights anticipated for assessment management of complicated UTI, ascending UTI with suspected early pyelonephritis, bladder outlet obstruction, acute on chronic anemia and abdomen with underlying CKD and gentleman with brittle diabetes, additional comorbidities as above. Diagnoses Acute UTI N39.0 Sepsis A41.9 Acute on chronic anemia D64.9 Bladder outlet obstruction N32.0 CKD (chronic kidney disease) N18.9
[2024-03-10] MEDS: pantoprazole 40 mg SDV IVP (23:30)
[2024-03-10 23:46] VITALS: BP 136/75; PULSE 85; RESP 17; TEMP 37.7; O2SAT 98
[2024-03-10] MEDS: hyDRALAzine 25 mg Tablet 50 MG PO (23:59)
[2024-03-11] VITALS (11 sets, daily range): BP systolic 104–142; BP diastolic 61–72; PULSE 77–89; RESP 15–18; TEMP 36.8–37.8; O2SAT 95–97
[2024-03-11 00:21] LABS: Ferritin 155 ng/mL (30-400); Iron 11 ug/dL (59-158); Percent Saturation 4.9 % (20-50); Total Iron Binding Capacity 224 mcg/dl; Unsaturated Iron Binding 213 ug/dL (112-347)
[2024-03-11] MEDS: piperacillin-tazobactam 3.375 GM in sodium chloride 0.9% (plus) 50 ML IV ×3 (02:34→23:16)
[2024-03-11] MEDS: sodium bicarbonate 650 mg Tablet PO (05:29)
[2024-03-11 05:34] LABS: Basophils # 0.1 10^3/uL (0.0-0.1); Basophils % 0.5 %; Eosinophils % 0.2 %; Hematocrit 21.8 % (37-53); Lymphocytes # 1.4 10^3/uL (0.8-4.8); Lymphocytes % 10.9 %; Mean Corpuscular HGB Conc 30.3 g/dL (30-55); Mean Corpuscular Hemoglobin 25.9 pg (27-33); Mean Corpuscular Volume 85.5 fl (82-101); Mean Platelet Volume 9.7 fL (7.4-10.4); Monocytes % 7.9 %; Neutrophils # 10.46 10^3/uL (1.8-7.7); Neutrophils % 79.7 %; Nucleated Red Blood Cells % 0 %; Platelet Count 270 10^3/cmm (157-399); Red Blood Count 2.55 10^6/uL (3.85-5.65); Red Cell Distribution Width 16.5 % (12.1-15.1); White Blood Count 13.11 10^3/uL (3.29-11.43)
[2024-03-11 05:56] LABS: Alanine Aminotransferase 7 U/L (0-41); Albumin Level 2.4 g/dL (3.5-5.2); Alkaline Phosphatase 135 U/L (40-130); Anion Gap 14.1 (5-19); Aspartate Amino Transferase 10 U/L (0-40); Blood Urea Nitrogen 25 mg/dL (6-20); Calcium 7.9 mg/dL (8.5-10.5); Carbon Dioxide 22 mmol/L (22-29); Chloride 106 mmol/L (98-107); Creatinine Clr Calc Pharmacy 79.8174; Globulin 4.5 g/dL (1.3-4.6); Glomerular Filtration Rate 53.2 mL/min (90-130); Glucose 107 mg/dL (65-115); Osmolality Calculated 291 mOsm/kg (285-295); Potassium 4.1 mmol/L (3.5-5.1); Sodium 138 mmol/L (136-145); Total Bilirubin 0.3 mg/dL (0.15-1.2); Total Protein 6.9 g/dL (6.6-8.7)
[2024-03-11 07:30] LABS: Glucose Point of Care 107 mg/dL (70-110)
[2024-03-11] MEDS: isosorbide mononitrate ER 30 mg Tablet PO (09:18)
[2024-03-11] MEDS: escitalopram 10 mg Tablet PO (09:18)
[2024-03-11] MEDS: hyDRALAzine 25 mg Tablet 50 MG PO ×2 (09:18→17:07)
[2024-03-11] MEDS: tamsulosin 0.4 mg Capsule PO (09:18)
[2024-03-11] MEDS: insulin glargine 100 units/1 mL 20 UNIT SUBCUT (09:18)
[2024-03-11] MEDS: sennosides-docusate Tablet 1 TAB PO (09:18)
[2024-03-11] MEDS: bumetanide 1 mg Tablet PO (09:18)
[2024-03-11] MEDS: metoprolol tartrate 25 mg Tablet 50 MG PO ×2 (09:24→20:27)
[2024-03-11] MEDS: sodium chloride 0.9% (100 ml) 100 ML 125 ML (10:56)
[2024-03-11 11:59] LABS: Glucose Point of Care 121 mg/dL (70-110)
[2024-03-11 16:22] LABS: Glucose Point of Care 132 mg/dL (70-110)
[2024-03-11 20:23] LABS: Glucose Point of Care 142 mg/dL (70-110)
[2024-03-11] MEDS: acetaminophen 325 mg Tablet 650 MG PO (20:35)
[2024-03-11] MEDS: insulin lispro 100 unit/1 mL SUBCUT (20:35)
[2024-03-11] MEDS: pantoprazole 40 mg SDV IVP (23:16)
[2024-03-12] VITALS (12 sets, daily range): BP systolic 105–153; BP diastolic 62–81; PULSE 67–79; RESP 16–18; TEMP 36.9–37.6; O2SAT 96–98
[2024-03-12 05:53] LABS: Basophils # 0.1 10^3/uL (0.0-0.1); Eosinophils # 0.1 10^3/uL (0.0-0.8); Eosinophils % 1.5 %; Hematocrit 23.9 % (37-53); Lymphocytes # 1.1 10^3/uL (0.8-4.8); Lymphocytes % 13.6 %; Mean Corpuscular HGB Conc 29.7 g/dL (30-55); Mean Corpuscular Hemoglobin 26.3 pg (27-33); Mean Corpuscular Volume 88.5 fl (82-101); Mean Platelet Volume 9.9 fL (7.4-10.4); Monocytes # 0.7 10^3/uL (0.2-0.9); Monocytes % 8.8 %; Neutrophils # 6.03 10^3/uL (1.8-7.7); Neutrophils % 74.7 %; Nucleated Red Blood Cells % 0 %; Platelet Count 266 10^3/cmm (157-399); Red Cell Distribution Width 16.2 % (12.1-15.1); White Blood Count 8.07 10^3/uL (3.29-11.43)
[2024-03-12] MEDS: sodium bicarbonate 650 mg Tablet PO (06:05)
[2024-03-12] MEDS: piperacillin-tazobactam 3.375 GM in sodium chloride 0.9% (plus) 50 ML IV ×3 (06:06→22:44)
[2024-03-12 06:08] LABS: Alanine Aminotransferase 6 U/L (0-41); Albumin Level 2.3 g/dL (3.5-5.2); Alkaline Phosphatase 155 U/L (40-130); Anion Gap 11.3 (5-19); Aspartate Amino Transferase 11 U/L (0-40); Blood Urea Nitrogen 29 mg/dL (6-20); Calcium 7.7 mg/dL (8.5-10.5); Carbon Dioxide 22 mmol/L (22-29); Chloride 105 mmol/L (98-107); Creatinine Clr Calc Pharmacy 70.9075; Globulin 4.4 g/dL (1.3-4.6); Glomerular Filtration Rate 45.6 mL/min (90-130); Glucose 87 mg/dL (65-115); Osmolality Calculated 283 mOsm/kg (285-295); Potassium 4.3 mmol/L (3.5-5.1); Sodium 134 mmol/L (136-145); Total Bilirubin 0.5 mg/dL (0.15-1.2); Total Protein 6.7 g/dL (6.6-8.7)
[2024-03-12 06:27] LABS: Glucose Point of Care 91 mg/dL (70-110)
[2024-03-12] MEDS: hyDRALAzine 25 mg Tablet 50 MG PO (09:19)
[2024-03-12] MEDS: escitalopram 10 mg Tablet PO (09:19)
[2024-03-12] MEDS: tamsulosin 0.4 mg Capsule PO (09:19)
[2024-03-12] MEDS: sennosides-docusate Tablet 1 TAB PO (09:20)
[2024-03-12] MEDS: isosorbide mononitrate ER 30 mg Tablet PO (09:20)
[2024-03-12] MEDS: insulin glargine 100 units/1 mL 20 UNIT SUBCUT (09:20)
[2024-03-12] MEDS: bumetanide 1 mg Tablet PO (09:20)
[2024-03-12] MEDS: metoprolol tartrate 25 mg Tablet 50 MG PO (09:22)
--- NOTE | 2024-03-12 11:12 | P.PN_ITS ---
Subjective 2 Subjective: patient is doing well Afebrile bp Medications adjusted Mclain catheter in place draining constipated urine Urine culture is pending Status post 1 unit PRBC , Will give another unit PRBC, FOBT pending Vitals/I&O/Wt Last Vital Signs Temp 99.0 F 03/12/24 09:58 Pulse 71 03/12/24 09:58 Resp 18 03/12/24 09:58 BP 117/66 03/12/24 09:58 Pulse Ox 98 03/12/24 09:58 O2 Del Method Room Air 03/12/24 08:31 03/11/24 03/12/24 03/12/24 22:59 06:59 14:59 Intake Total 530 / 1480 410 / 1890 240 / 240 Output Total 1050 / 1050 300 / 1350 Balance -520 / 430 110 / 540 240 / 240 Weight last 48 hrs Weight 122.561 kg Weight 122.561 kg Weight 119.068 kg Weight 118.898 kg Weight 116.12 kg Physical Exam 2 Narrative: Clinically does not look fluid overloaded Awake and alert Right below-knee amputation right stump and the dressing Currently on room air Hemodynamic stable Short attention span Unkept Appearance Urinary Catheter Management: Mclain: Cath Placed During This Visit: yes Reason for Continuing Indwelling Catheter: Acute Urinary Retention or Obstruction Urinary Catheter Date of Insertion: 03/11/24 Urinary Catheter Time of Insertion: 06:24 Data 03/12/24 05:02 03/12/24 05:02 Micro: Microbiology 03/10/24 18:33 Urine Culture - Preliminary Urine,Clean Catch Gram Negative Rods 03/10/24 19:40 Blood Culture - Preliminary Blood NEGATIVE TO DATE 03/10/24 19:38 Blood Culture - Preliminary Blood NEGATIVE TO DATE A&P Assessment and plan (1) Acute UTI: (2) Sepsis: P (3) Acute on chronic anemia: (4) Bladder outlet obstruction: (5) CKD (chronic kidney disease): Plan Pyelonephritis Continue antibiotics BPH related urinary retention, patient will need Mclain catheter and voiding trial before discharge Normocytic anemia status post 1 unit PRBC Right BKA wound: Wound care. Monitor for S/S of infection. Subacute osteomyelitis left ankle and foot: Continue wound care, monitor for S/S of infection, and follow-up with PCP. Prostatomegaly: Follow-up with primary provider for further assessment and management. Starting Flomax. Brittle DM: Sliding scale insulin. Consistent carb diet. Lantus. Chronic CHF: Currently not in exacerbation. Monitor. Continue Bumex daily. HTN: Continue hydralazine, Imdur Attestations 2 Medical Necessity Statement*: Discharge once t urine culture report is reported Diagnoses Acute UTI N39.0 Sepsis A41.9 Acute on chronic anemia D64.9 Bladder outlet obstruction N32.0 CKD (chronic kidney disease) N18.9
[2024-03-12 11:36] LABS: Ferritin 310 ng/mL (30-400); Iron 51 ug/dL (59-158); Percent Saturation 29.3 % (20-50); Total Iron Binding Capacity 174 mcg/dl; Unsaturated Iron Binding 123 ug/dL (112-347)
[2024-03-12 12:27] LABS: Glucose Point of Care 100 mg/dL (70-110)
--- NOTE | 2024-03-12 14:59 | PC.SOCIAL ---
IMM Updated Updated pt on IMM. No questions voiced. Provided pt a copy. Initialed ,dated, & timed a copy & placed in chart.
[2024-03-12] MEDS: hyDRALAzine 25 mg Tablet PO ×2 (16:11→21:08)
[2024-03-12] MEDS: acetaminophen 325 mg Tablet 650 MG PO (16:17)
[2024-03-12 16:57] LABS: Glucose Point of Care 116 mg/dL (70-110)
[2024-03-12 20:19] LABS: Glucose Point of Care 136 mg/dL (70-110)
[2024-03-12] MEDS: metoprolol tartrate 25 mg Tablet PO (21:08)
[2024-03-12] MEDS: pantoprazole 40 mg SDV IVP (22:44)
[2024-03-13 04:00] VITALS: BP 122/66; PULSE 71; RESP 18; TEMP 37.2; O2SAT 96
[2024-03-13 05:33] LABS: Basophils # 0.1 10^3/uL (0.0-0.1); Basophils % 1.2 %; Eosinophils # 0.2 10^3/uL (0.0-0.8); Eosinophils % 3.1 %; Hematocrit 25.5 % (37-53); Lymphocytes # 1.2 10^3/uL (0.8-4.8); Lymphocytes % 18.3 %; Mean Corpuscular HGB Conc 31.4 g/dL (30-55); Mean Corpuscular Hemoglobin 26.5 pg (27-33); Mean Corpuscular Volume 84.4 fl (82-101); Mean Platelet Volume 9.6 fL (7.4-10.4); Monocytes # 0.7 10^3/uL (0.2-0.9); Neutrophils # 4.36 10^3/uL (1.8-7.7); Neutrophils % 66.8 %; Nucleated Red Blood Cells % 0 %; Platelet Count 302 10^3/cmm (157-399); Red Blood Count 3.02 10^6/uL (3.85-5.65); Red Cell Distribution Width 15.6 % (12.1-15.1); White Blood Count 6.52 10^3/uL (3.29-11.43)
[2024-03-13 05:53] LABS: Alanine Aminotransferase 9 U/L (0-41); Albumin Level 2.5 g/dL (3.5-5.2); Alkaline Phosphatase 179 U/L (40-130); Anion Gap 11.9 (5-19); Aspartate Amino Transferase 12 U/L (0-40); Blood Urea Nitrogen 24 mg/dL (6-20); Carbon Dioxide 21 mmol/L (22-29); Chloride 104 mmol/L (98-107); Creatinine Clr Calc Pharmacy 81.0372; Globulin 4.5 g/dL (1.3-4.6); Glomerular Filtration Rate 53.2 mL/min (90-130); Glucose 76 mg/dL (65-115); Osmolality Calculated 279 mOsm/kg (285-295); Potassium 3.9 mmol/L (3.5-5.1); Sodium 133 mmol/L (136-145); Total Bilirubin 0.4 mg/dL (0.15-1.2)
[2024-03-13] MEDS: piperacillin-tazobactam 3.375 GM in sodium chloride 0.9% (plus) 50 ML IV ×2 (06:07→14:54)
[2024-03-13 06:19] LABS: Glucose Point of Care 78 mg/dL (70-110)
[2024-03-13 07:28] VITALS: BP 154/80; PULSE 73; TEMP 37.1; O2SAT 97
[2024-03-13] MEDS: tamsulosin 0.4 mg Capsule PO (08:48)
[2024-03-13] MEDS: escitalopram 10 mg Tablet PO (08:48)
[2024-03-13] MEDS: metoprolol tartrate 25 mg Tablet PO ×2 (08:48→21:00)
[2024-03-13] MEDS: sennosides-docusate Tablet 1 TAB PO (08:48)
[2024-03-13] MEDS: hyDRALAzine 25 mg Tablet PO ×3 (08:48→21:00)
[2024-03-13] MEDS: insulin glargine 100 units/1 mL 20 UNIT SUBCUT (08:49)
--- NOTE | 2024-03-13 10:15 | PICC.NOTE ---
Midline placed to right basilic vein. Referred to vascular access nurse for midline placement for IV antibiotics x 14 days. Risks and benefits discussed and informed consent obtained from pt. Right arm assessed with right basilic vein measuring 3.9 mm, straight, and apparent best choice for placement. Using sterile technique and MST, right basilic vein accessed x 1 stick. Mid-arm circumference measured 10 cm from right AC 35 cm. Trimmed cath 12 cm with 0 cm external length noted. Line secured with stat-lock. Insertion site covered with Biopatch and TSM. Report given to bedside nurse, NIHARIKA Cardoso.
--- NOTE | 2024-03-13 11:00 | PM.DCS ---
Discharge Providers Date of Admission: 03/10/24 20:39 Date of Discharge: March 13, 2024 Attending Provider at Admission: Graham Swain Attending Provider at Discharge: Venus Estrada MD Diagnoses at Discharge Discharge Diagnosis (1) Acute UTI: Status: Acute (2) Sepsis: Status: Acute (3) Acute on chronic anemia: Status: Acute (4) Bladder outlet obstruction: Status: Acute (5) CKD (chronic kidney disease): Status: Chronic Reason for Visit Reason for Visit: fever; left flank pain Hospital Course Hospital Course 53-year-old male with prior right below-knee amputation, history of chronic kidney disease, BPH, chronic outlet bladder obstruction, presented with sepsis, fever he was diagnosed with pyelonephritis, his urine culture showed ESBL E. coli, midline was placed 03/13, on ertapenem for 2 weeks arranged, patient will need urology follow-up patient is stating that he would like to follow-up with [place] urologist. Patient was struggling to urinate on his own hence Mclain catheter was placed for failed voiding trial and frequent urinary retention, he will need tamsulosin and close outpatient urology follow-up. Please note he seems to have anemia of chronic disease he required 2 unit PRBC during hospitalization, no signs of active GI bleed, hemodynamic remained stable. Hemoglobin at time of discharge around 8. Physical Exam Narrative: Patient is slow to response however he is able to respond to my questions appropriately Remained hemodynamically stable GCS [address] Right below-knee amputation Currently on room air Afebrile Urinary Catheter Management: Mclain: Cath Placed During This Visit: yes Reason for Continuing Indwelling Catheter: Acute Urinary Retention or Obstruction Urinary Catheter Date of Insertion: 03/11/24 Urinary Catheter Time of Insertion: 06:24 Discharge Data Studies Completed and Pending Completed Studies During Hospitalization Category Date Time Status CT kidney stone [address]93 Stat Cat Scan 03/10/24 16:34 Completed Pending at discharge Category Date Time Status Blood Culture Stat Lab 03/10/24 19:40 Results Occult Blood Stool [Immunochemical Fecal OCB] Routine Lab 03/10/24 22:59 Uncollected Occult Blood Stool [Immunochemical Fecal OCB] Routine Lab 03/12/24 11:05 Uncollected Radiology Impressions Abdomen/Pelvis CT 03/10/24 16:34 IMPRESSION: 1. The bladder is significantly distended, with mild diffuse bladder wall thickening and perivesical inflammatory changes, suspicious for cystitis and possibly related to chronic outlet obstruction and urinary retention in the setting of prostatomegaly. 2. Inguinal and external iliac lymphadenopathy, likely reactive. 3. Nonobstructive right-sided renal stones. Laboratory Results WBC 6.52 10^3/uL (3.29-11.43) 03/13/24 04:42 RBC 3.02 10^6/uL (3.85-5.65) L 03/13/24 04:42 Hgb 8.00 g/dL (11.27-16.99) L 03/13/24 04:42 Hct 25.5 % (37-53) L 03/13/24 04:42 MCV 84.4 fl (82-101) 03/13/24 04:42 MCH 26.5 pg (27-33) L 03/13/24 04:42 MCHC 31.4 g/dL (30-55) D 03/13/24 04:42 RDW 15.6 % (12.1-15.1) H 03/13/24 04:42 Plt Count 302 10^3/cmm (157-399) 03/13/24 04:42 MPV 9.6 fL (7.4-10.4) 03/13/24 04:42 Neut % (Auto) 66.8 % 03/13/24 04:42 Lymph % (Auto) 18.3 % 03/13/24 04:42 [place] % (Auto) 10.0 % 03/13/24 04:42 Eos % (Auto) 3.1 % 03/13/24 04:42 Baso % (Auto) 1.2 % 03/13/24 04:42 Neut # (Auto) 4.36 10^3/uL (1.8-7.7) 03/13/24 04:42 Lymph # (Auto) 1.2 10^3/uL (0.8-4.8) 03/13/24 04:42 [place] # (Auto) 0.7 10^3/uL (0.2-0.9) 03/13/24 04:42 Eos # (Auto) 0.2 10^3/uL (0.0-0.8) 03/13/24 04:42 Baso # (Auto) 0.1 10^3/uL (0.0-0.1) 03/13/24 04:42 Nucleated RBC % (auto) 0 % 03/13/24 04:42 Nucleated RBCs # 0.0 /100WBC 03/13/24 04:42 Sodium 133 mmol/L (136-145) L 03/13/24 04:42 Potassium 3.9 mmol/L (3.5-5.1) 03/13/24 04:42 Chloride 104 mmol/L (98-107) 03/13/24 04:42 Carbon Dioxide 21 mmol/L (22-29) L 03/13/24 04:42 Anion Gap 11.9 (5-19) 03/13/24 04:42 BUN 24 mg/dL (6-20) H 03/13/24 04:42 Creatinine 1.4 mg/dL (0.7-1.2) H 03/13/24 04:42 GFR Calculation 53.2 mL/min (90-130) L 03/13/24 04:42 Glucose 76 mg/dL (65-115) 03/13/24 04:42 POC Glucose 78 mg/dL (70-110) 03/13/24 06:14 Calculated Osmolality 279 mOsm/kg (285-295) L 03/13/24 04:42 Lactic Acid 1.6 mmol/L (0.5-2.2) 03/10/24 17:14 Calcium 8.0 mg/dL (8.5-10.5) L 03/13/24 04:42 Iron 51 ug/dL (59-158) L 03/12/24 05:02 TIBC 174 mcg/dl 03/12/24 05:02 % Saturation 29.3 % (20-50) 03/12/24 05:02 Unsat Iron Binding 123 ug/dL (112-347) 03/12/24 05:02 Ferritin 310 ng/mL (30-400) 03/12/24 05:02 Total Bilirubin 0.4 mg/dL (0.15-1.2) 03/13/24 04:42 AST 12 U/L (0-40) 03/13/24 04:42 ALT 9 U/L (0-41) 03/13/24 04:42 Alkaline Phosphatase 179 U/L (40-130) H 03/13/24 04:42 Total Protein 7.0 g/dL (6.6-8.7) 03/13/24 04:42 Albumin 2.5 g/dL (3.5-5.2) L 03/13/24 04:42 Globulin 4.5 g/dL (1.3-4.6) 03/13/24 04:42 Urine Color Yellow (Yellow) 03/10/24 18:33 Urine Appearance Turbid (CLEAR) A 03/10/24 18: Urine pH 8.0 (5-7) A 03/10/24 18:33 Ur Specific [place] 1.014 (1.005-1.030) 03/10/24 18:33 Urine Protein 3+ (Negative) A 03/10/24 18: Urine Glucose (UA) Negative (Normal) 03/10/24 18: Urine Ketones Negative (Negative) 03/10/24 18:33 Urine Blood 1+ (Negative) A 03/10/24 18: Urine Nitrate Positive (Negative) A 03/10/24 18: Urine Bilirubin Negative (Negative) 03/10/24 18:33 Urine Urobilinogen 1.0 mg/dL (Negative) 03/10/24 18:33 Ur Leukocyte Esterase 3+ (Negative) A 03/10/24 18:33 Urine RBC 3-5 /hpf (0-2) 03/10/24 18:33 Urine WBC >100 /hpf (0-5) H 03/10/24 18:33 Ur Squamous Epith Cells 0-5 /hpf (0-5) 03/10/24 18:33 Amorphous Sediment Not Reportable 03/10/24 18:33 Urine Bacteria Exceeds /hpf (NONE) 03/10/24 18:33 Hyaline Casts 2.05 /lpf 03/10/24 18:33 Blood Type A Positive 03/11/24 06:53 Rho(D) Type Rh positive 03/11/24 06:53 Antibody Screen Negative 03/11/24 06:53 Crossmatch See Detail 03/11/24 06:53 Vitals Last Vital Signs Temp 98.8 F 03/13/24 07:28 Pulse 73 03/13/24 07:28 Resp 18 03/13/24 04:00 BP 154/80 03/13/24 07:28 Pulse Ox 97 03/13/24 07:28 O2 Del Method Room Air 03/13/24 07:28 Discharge Plan Discharge Patient Disposition: Xfer SNF Condition: Fair Prescriptions: New tamsulosin 0.4 mg Capsule 0.4 mg PO DAILY Qty: 60 2RF ertapenem 1 gram recon soln 1 g IV DAILY 14 Days Qty: 14 0RF Continued acetaminophen 650 mg Tablet 650 mg PO Q6H PRN (Reason: Pain, Moderate) polyethylene glycol 3350 [Miralax] 17 gram Powder In Packet 17 g PO DAILY PRN (Reason: Constipation) magnesium hydroxide [Milk of Magnesia] 400 mg/5 mL Suspension 30 ml PO DAILY PRN (Reason: Constipation) bisacodyl [Dulcolax (bisacodyl)] 10 mg Suppository 10 mg OR DAILY PRN (Reason: Constipation) Fleet Enema 19-7 gram/118 mL Enema 118 ml OR DAILY PRN (Reason: Constipation) magnesium citrate Solution 296 ml PO DAILY PRN (Reason: Constipation) isosorbide mononitrate 30 mg Tablet Extended Release 24 Hr 30 mg PO DAILY Qty: 30 3RF hydralazine 25 mg Tablet 50 mg PO TID Qty: 90 3RF sodium bicarbonate 650 mg Tablet 650 mg PO QAM Qty: 30 0RF metoprolol tartrate 25 mg Tablet 50 mg PO BID@0900,2100 Qty: 60 3RF bumetanide 1 mg tablet 1 mg PO DAILY Qty: 30 4RF potassium chloride 10 mEq tablet extended release 10 meq PO DAILY Qty: 30 3RF Rx Instructions: with bumex only Januvia 25 mg tablet 25 mg PO DAILY Qty: 30 5RF insulin glargine [Lantus Solostar U-100 Insulin] 100 unit/mL (3 mL) insulin pen 20 unit SUBCUT QPM Qty: 15 4RF insulin lispro [Humalog KwikPen Insulin] 100 unit/mL insulin pen See Rx Instructions .ROUTE .COMPLEX Qty: 15 3RF Rx Instructions: med intensity SS escitalopram oxalate 10 mg tablet 10 mg PO DAILY Qty: 30 0RF sennosides-docusate sodium [Senexon-S] 8.6-50 mg tablet 1 tab-cap PO DAILY Qty: 10 0RF Discharge Orders: Discharge Order (Routine); Ordered 03/13/24 Ordered By: Venus Estrada Referrals: Andre Camargo MD [Referring] - 1-3 days (Need URology BPH PLUNKETT ESBL UTI ) Discharge Diet: Diabetic Discharge Attestations Time Spent in Discharge Care*: greater than 30 min Quality Metrics Clinical Quality Measures [ No reported AMI, CVA or VTE this stay] Coding Level of Care Code Acute Code for Chg Fwd Diagnoses Acute UTI N39.0 Sepsis A41.9 Acute on chronic anemia D64.9 Bladder outlet obstruction N32.0 CKD (chronic kidney disease) N18.9
[2024-03-13 11:06] LABS: Glucose Point of Care 157 mg/dL (70-110)
[2024-03-13 11:16] VITALS: BP 142/79; PULSE 70; RESP 17; TEMP 36.8; O2SAT 98
[2024-03-13] MEDS: insulin lispro 100 unit/1 mL SUBCUT ×2 (12:27→21:40)
[2024-03-13 16:00] VITALS: BP 128/83; PULSE 70; TEMP 36.8; O2SAT 97
[2024-03-13 16:36] LABS: Glucose Point of Care 123 mg/dL (70-110)
[2024-03-13 20:00] VITALS: BP 148/77; PULSE 80; RESP 20; TEMP 36.8; O2SAT 98
[2024-03-13 21:24] LABS: Glucose Point of Care 167 mg/dL (70-110)
== END 2024-03-13 22:59 | disposition skilled nursing facility (03) | DRG 872 ==
LOC: ER 18:49 → MEDSURG 21:13
PROVIDERS: Family Medicine; Admitting Provider Internal Medicine; Emergency Provider Emergency Medicine; Visit Provider Internal Medicine
DX: A41.9 Sepsis, unspecified organism (principal); Z16.12 Extended spectrum beta lactamase (ESBL) resistance; N13.8 Other obstructive and reflux uropathy; N20.0 Calculus of kidney; B96.20 Unspecified Escherichia coli [E. coli] as the cause of diseases classified elsewhere; N18.9 Chronic kidney disease, unspecified; D63.1 Anemia in chronic kidney disease; N40.1 Benign prostatic hyperplasia with lower urinary tract symptoms; R33.8 Other retention of urine; E10.22 Type 1 diabetes mellitus with diabetic chronic kidney disease; Z79.4 Long term (current) use of insulin; Z87.442 Personal history of urinary calculi; Z89.511 Acquired absence of right leg below knee; Z89.412 Acquired absence of left great toe
CPT/HCPCS: 36415; 36416; 36430; 36569; 51702; 51798; 74176; 80053; 81001; 82728; 82962; 83540; 83550; 83605; 85025; 86850; 86900; 86920; 87040; 87077; 87086; 87186; 96365; 96372; 99285; C1751; J1815; J2470; J2543; J7030; P9016; P9040

== ENCOUNTER → 2024-03-22 11:38 | Outpatient (BNVA) | payer MEDICARE, MEDICAID, SELFPAY | PROVIDERS: Visit Provider Surgery | DX: Z98.890 Other specified postprocedural states (principal); Z89.511 Acquired absence of right leg below knee | CPT/HCPCS: 99024 ==

== ENCOUNTER → 2024-04-16 10:47 | Outpatient (BNVA) | payer MEDICARE, MEDICAID, SELFPAY | PROVIDERS: Visit Provider Surgery | DX: Z89.9 Acquired absence of limb, unspecified (principal); R03.0 Elevated blood-pressure reading, without diagnosis of hypertension | CPT/HCPCS: 99214 ==

== ENCOUNTER → 2024-05-04 10:55 | Outpatient (BNVA) | payer MEDICARE, MEDICAID, SELFPAY | PROVIDERS: Visit Provider Surgery | DX: R03.0 Elevated blood-pressure reading, without diagnosis of hypertension (principal); Z89.9 Acquired absence of limb, unspecified | CPT/HCPCS: 99214 ==

== ENCOUNTER → 2024-05-10 10:02 | Outpatient (BNVA) | payer MEDICARE, MEDICAID, SELFPAY | PROVIDERS: Visit Provider Podiatrist Foot & Ankle Surgery | DX: E11.8 Type 2 diabetes mellitus with unspecified complications (principal); E11.21 Type 2 diabetes mellitus with diabetic nephropathy; Z89.9 Acquired absence of limb, unspecified; Z79.4 Long term (current) use of insulin; L60.3 Nail dystrophy | CPT/HCPCS: 11721 ==